=== PATIENT | female | born 1950 | race Caucasian/White ===

== ENCOUNTER 2016-08-26 21:57 | Emergency (ER) | payer MEDICARE, MEDICAID ==
[~2016-08-26] VITALS: Ht 160 cm; Wt 65.8 kg
[2016-08-26 22:15] VITALS: BP 151/81
[2016-08-27] MEDS ORDERED: traMADol HCL 50 MG TAB PO ONE (00:15)
== END 2016-08-27 00:26 | disposition home or self-care (01) ==
LOC: ER 22:05
DX: S20.212A Contusion of left front wall of thorax, initial encounter (principal); S60.212A Contusion of left wrist, initial encounter; Y09 Assault by unspecified means; Y93.89 Activity, other specified; Y99.8 Other external cause status; Y92.89 Other specified places as the place of occurrence of the external cause
CPT/HCPCS: 29125; 71101; 73100

== ENCOUNTER 2016-11-03 12:58 | Emergency (ER) | payer OTHER, MEDICAID ==
[~2016-11-03] VITALS: Ht 165.1 cm; Wt 72.6 kg
[2016-11-03 13:37] LABS: Basophils # (auto) 0 uL; Basophils % (auto) 0.5 % (0.0-2.0); Eosinophils # (auto) 0.1 uL; Eosinophils % (auto) 1.4 % (0.0-7.0); Hematocrit 35.8 % (36.0-46.0); Hemoglobin 11.7 g/dL (12.2-16.2); Lymphocytes % (auto) 25.3 % (10.0-50.0); Mean Corpuscular Hemoglobin 28.6 pg (28.0-32.0); Mean Corpuscular Hgb Conc. 32.7 g/dL (32.0-36.0); Mean Corpuscular Volume 87.5 fL (80.0-100.0); Mean Platelet Volume 9.1 fL (7.4-10.4); Monocytes # (auto) 0.3 uL; Monocytes % (auto) 7.4 % (0.0-12.0); Neutrophils # (auto) 2.6 uL; Neutrophils % (auto) 65.4 % (37.0-80.0); Platelet Count (auto) 133 10^3/uL (140-450); Red Cell Distribution Width 14.5 % (11.6-16.0)
[2016-11-03 13:59] LABS: Albumin 3.5 g/dL (3.4-5.0); Alkaline Phosphatase 66 U/L (45-117); Anion Gap 8 (5-15); Aspartate Aminotransferase 16 U/L (15-37); BUN/Creatinine Ratio 13.3; Bilirubin, Total 0.4 mg/dL (0.2-1.0); Blood Urea Nitrogen 12 mg/dL (7-18); Calcium 8.5 mg/dL (8.5-10.1); Carbon Dioxide 25 mmol/L (21-32); Chloride 106 mmol/L (98-107); GFR African American 81 mL/min; GFR Non-African American 67 mL/min; Glucose 92 mg/dL (74-106); Magnesium 2.3 mg/dL (1.6-2.6); Potassium 4.2 mmol/L (3.5-5.1); Sodium 139 mmol/L (136-145); Total Protein 6.9 g/dL (6.4-8.2)
[2016-11-03 15:05] LABS: Urine RBC None Seen /hpf (0 - 4)
[2016-11-03] MEDS ORDERED: ONDANSETRON HCL 4 MG/2 ML VIAL IV ONE (15:15)
[2016-11-03] MEDS ORDERED: MORPHINE SULFATE 4 MG/ML SYRG IV ONE (15:15)
[2016-11-03 15:30] LABS: Urine Bilirubin Negative (Negative); Urine Blood Negative /uL (Negative); Urine Color Colorless (Yellow); Urine Glucose Normal (Normal); Urine Ketone Negative (Negative); Urine Nitrite Negative (Negative); Urine Squamous Epithelial Cell FEW /hpf (<5); Urine Urobilinogen Normal (Negative); Urine pH 6.5 (5.0-8.0)
[2016-11-03 16:26] VITALS: BP 112/54
== END 2016-11-03 17:36 | disposition home or self-care (01) ==
LOC: EDUNIT# 12:58 → EDBD 12:58 → ER 13:01
DX: R07.89 Other chest pain (principal); K21.9 Gastro-esophageal reflux disease without esophagitis; E07.9 Disorder of thyroid, unspecified; I10 Essential (primary) hypertension; M41.9 Scoliosis, unspecified; G89.4 Chronic pain syndrome
CPT/HCPCS: 36415; 71020; 80053; 81001; 83690; 83735; 84484; 85025; 93005; 94761; 96374; 96375; 99285; J2270; J2405

== ENCOUNTER 2020-03-04 15:20 | Inpatient (IN) | payer OTHER, MEDICAID ==
[~2020-03-04] VITALS: Ht 157.5 cm; Wt 56.4 kg
[~2020-03-04 15:20] MED LIST: ALBUAER3 IN; ASPI81CH43; ATOR20TA50 PO; BACL20TA PO; BENA40TA7 PO; DIPH2.5T73 PO; HYDR-2551 PO; HYDR-4072 PO; LEV50T PO; LORA-622 PO; MECL1TAB42 PO; MELO1TAB73 PO; METO10TA3 PO; METO25TA93 PO; OMEP20TA85 PO; PREG50CA PO; PROC10TA2 PO; QUET50TA PO; ROPI3TAB4 PO; TEMA15CA91 PO
[2020-03-04] MEDS ORDERED: ASPirin 81 mg TAB PO ONE (16:00)
[2020-03-04] MEDS ORDERED: NITROGLYCERIN 0.4 MG SL TAB SL ONE (16:00)
[2020-03-04 17:58] LABS: Basophils # (auto) 0 10 ^3/uL (0-0.2); Basophils % (auto) 0.4 % (0.0-2.0); Eosinophils # (auto) 0.1 10 ^3/uL (0-0.8); Eosinophils % (auto) 1.3 % (0.0-7.0); Hematocrit 36.1 % (36.0-46.0); Hemoglobin 11.7 g/dL (12.2-16.2); Lymphocytes % (auto) 17.4 % (10.0-50.0); Mean Corpuscular Hemoglobin 30.9 pg (28.0-32.0); Mean Corpuscular Hgb Conc. 32.4 g/dL (32.0-36.0); Mean Corpuscular Volume 95.2 fL (80.0-100.0); Monocytes # (auto) 0.3 10 ^3/uL (0-1.3); Monocytes % (auto) 5.9 % (0.0-12.0); Neutrophils # (auto) 4.2 10 ^3/uL (1.6-8.6); Platelet Count (auto) 177 10^3/uL (140-450); Red Blood Cells 3.79 10^6/uL (4.0-5.20); White Blood Cell 5.6 10^3/uL (4.4-10.8)
[2020-03-04 18:13] LABS: INR 1.03 (0.9-1.15); Partial Thromboplastin Time 26.8 sec (23.0-31.2)
[2020-03-04 18:16] LABS: Alanine Aminotransferase 9 U/L (13-56); Albumin 3.6 g/dL (3.4-5.0); Anion Gap 7 (5-15); Aspartate Aminotransferase 9 U/L (15-37); BUN/Creatinine Ratio 9.6; Blood Urea Nitrogen 9 mg/dL (7-18); Carbon Dioxide 21 mmol/L (21-32); Chloride 110 mmol/L (98-107); GFR African American 76 mL/min; GFR Non-African American 63 mL/min; Glucose 76 mg/dL (74-106); Potassium 4.2 mmol/L (3.5-5.1); Sodium 138 mmol/L (136-145)
[2020-03-04 18:19] LABS: Calcium 8.6 mg/dL (8.5-10.1)
[2020-03-04 18:21] LABS: Alkaline Phosphatase 61 U/L (45-117); Bilirubin, Total 0.5 mg/dL (0.2-1.0)
[2020-03-04] MEDS ORDERED: MORPHINE SULFATE 4 MG/ML SYR/VIAL IV ONE (18:45)
[2020-03-04] MEDS ORDERED: ONDANSETRON HCL 4 MG/2 ML VIAL IV ONE (18:45)
[2020-03-04] MEDS ORDERED: ACETAMINOPHEN 500 MG TAB PO PRN (19:00)
[2020-03-04] MEDS ORDERED: NITROGLYCERIN 0.4 MG SL TAB SL PRN (19:00)
[2020-03-04] MEDS ORDERED: MORPHINE SULF INJ 2 MG/ML SYRINGE 1ML IV PRN (19:15)
[2020-03-04] MEDS ORDERED: TEMAZEPAM 15 MG CAP PO PRN (19:15)
[2020-03-04] MEDS ORDERED: LACTULOSE 20Gm/30ML SOLN PO PRN (19:15)
[2020-03-04] MEDS ORDERED: ONDANSETRON HCL 4 MG/2 ML VIAL IV PRN (19:15)
[2020-03-04] MEDS ORDERED: SODIUM CHLORIDE 0.9% 1,000 ML IV ONE (21:45)
[2020-03-04] MEDS: ROPINIROLE HYDROCHLORIDE 3 MG PO SCH (22:00)
[2020-03-04] MEDS ORDERED: ALBUTEROL SULF HFA 90MCG INH 200DOSE IN SCH (22:00)
[2020-03-04] MEDS: ATORVASTATIN 20 MG TAB PO SCH (22:06)
[2020-03-04] MEDS: QUEtiapine FUMARATE 25 MG TAB PO SCH (22:07)
[2020-03-04] MEDS: PREGABALIN 25 MG CAP PO SCH (22:07)
[2020-03-05] MEDS ORDERED: SODIUM CHLORIDE 0.9% 1,000 ML IV ONE (01:00)
[2020-03-05] MEDS: NOREPINEPHRINE 8 MG/250ML KIT 250 ML IV SCH (01:16)
[2020-03-05] MEDS: ROPINIROLE HYDROCHLORIDE 3 MG PO SCH ×3 (06:00→21:10)
[2020-03-05] MEDS: LEVOTHYROXINE SODIUM 50 MCG TAB PO SCH (07:08)
[2020-03-05] MEDS ORDERED: CHOLECALCIFEROL (VITD3) 2,000 UNIT CAP PO SCH (10:00)
[2020-03-05] MEDS ORDERED: ENOXAPARIN SOD 40 MG/0.4 ML SYRINGE SC SCH ×2 (10:00)
[2020-03-05] MEDS ORDERED: ASCORBIC ACID 1,000 MG TAB PO SCH (10:00)
[2020-03-05] MEDS ORDERED: METOPROLOL SUCCINATE XL 50 MG TAB PO SCH (10:00)
[2020-03-05] MEDS: ZINC SULFATE 220mg CAP or TAB PO SCH (10:40)
[2020-03-05] MEDS: ASPirin 81 mg TAB PO SCH (10:40)
[2020-03-05] MEDS: PANTOPRAZOLE 40 MG TAB PO SCH (10:40)
[2020-03-05] MEDS ORDERED: AZITHROMYCIN 250 MG TAB PO ONE (15:15)
[2020-03-05] MEDS ORDERED: cefTRIAXone 1GM/50ML D5W 50 ML IV ONE (15:15)
[2020-03-05] MEDS: traMADol HCL 50 MG TAB PO PRN (16:26)
[2020-03-05 19:45] VITALS: BP 114/45
[2020-03-05] MEDS: ATORVASTATIN 20 MG TAB PO SCH (21:12)
[2020-03-05] MEDS: PREGABALIN 25 MG CAP PO SCH (21:12)
[2020-03-05] MEDS: QUEtiapine FUMARATE 25 MG TAB PO SCH (21:12)
[2020-03-05 22:00] VITALS: BP 105/59
[2020-03-05] MEDS ORDERED: ACET-1156 PO (22:47)
[2020-03-05] MEDS ORDERED: ISOS30TA4 PO (22:48)
[2020-03-05] MEDS ORDERED: CARV3.1240 PO (22:48)
[2020-03-05 23:27] LABS: Anion Gap 5 (5-15); BUN/Creatinine Ratio 10.4; Blood Urea Nitrogen 10 mg/dL (7-18); Calcium 8.4 mg/dL (8.5-10.1); Carbon Dioxide 22 mmol/L (21-32); Chloride 109 mmol/L (98-107); GFR African American 74 mL/min; GFR Non-African American 61 mL/min; Glucose 84 mg/dL (74-106); Potassium 4.6 mmol/L (3.5-5.1); Sodium 136 mmol/L (136-145)
[2020-03-06] MEDS: NOREPINEPHRINE 8 MG/250ML KIT 250 ML IV SCH (00:43)
[2020-03-06 05:00] VITALS: BP 16/50
[2020-03-06] MEDS: ROPINIROLE HYDROCHLORIDE 3 MG PO SCH ×3 (06:00→21:01)
[2020-03-06] MEDS: LEVOTHYROXINE SODIUM 50 MCG TAB PO SCH (06:31)
[2020-03-06 06:42] LABS: Basophils # (auto) 0 10 ^3/uL (0-0.2); Basophils % (auto) 0.2 % (0.0-2.0); Eosinophils # (auto) 0.1 10 ^3/uL (0-0.8); Eosinophils % (auto) 1.9 % (0.0-7.0); Hemoglobin 11.5 g/dL (12.2-16.2); Lymphocytes # (auto) 1.2 10 ^3/uL (0.4-5.4); Lymphocytes % (auto) 28.9 % (10.0-50.0); Mean Corpuscular Hemoglobin 31.5 pg (28.0-32.0); Mean Corpuscular Hgb Conc. 32.9 g/dL (32.0-36.0); Mean Corpuscular Volume 95.8 fL (80.0-100.0); Monocytes # (auto) 0.3 10 ^3/uL (0-1.3); Monocytes % (auto) 7.8 % (0.0-12.0); Neutrophils # (auto) 2.6 10 ^3/uL (1.6-8.6); Neutrophils % (auto) 61.2 % (37.0-80.0); Platelet Count (auto) 144 10^3/uL (140-450); Red Blood Cells 3.66 10^6/uL (4.0-5.20); Red Cell Distribution Width 13.8 % (11.8-14.3); White Blood Cell 4.3 10^3/uL (4.4-10.8)
[2020-03-06 06:55] LABS: Albumin 3.4 g/dL (3.4-5.0); Calcium 8.3 mg/dL (8.5-10.1); Potassium 4.2 mmol/L (3.5-5.1)
[2020-03-06 06:59] LABS: BUN/Creatinine Ratio 14.8; Bilirubin, Total 0.4 mg/dL (0.2-1.0); Total Protein 6.6 g/dL (6.4-8.2)
[2020-03-06 08:00] VITALS: BP 138/78
[2020-03-06] MEDS: cefTRIAXone 1GM/50ML D5W 50 ML IV SCH (08:56)
[2020-03-06 09:00] VITALS: BP 112/58
[2020-03-06] MEDS ORDERED: RIVAROXABAN 20 MG TAB PO SCH ×2 (10:00→18:00)
[2020-03-06] MEDS: ASPirin 81 mg TAB PO SCH (10:17)
[2020-03-06] MEDS: PANTOPRAZOLE 40 MG TAB PO SCH (10:17)
[2020-03-06] MEDS: AZITHROMYCIN 250 MG TAB PO SCH (10:17)
[2020-03-06] MEDS: CHOLECALCIFEROL (VITD3) 1,000UNIT=25mCg TAB PO SCH (10:35)
[2020-03-06] MEDS: ZINC SULFATE 220mg CAP or TAB PO SCH (10:35)
[2020-03-06] MEDS: ASCORBIC ACID 500 MG TAB PO SCH (10:35)
[2020-03-06] MEDS: RIVAROXABAN 20 MG TAB PO SCH (11:10)
[2020-03-06 13:00] VITALS: BP 115/53
[2020-03-06] MEDS: MORPHINE SULF INJ 2 MG/ML SYRINGE 1ML IV PRN (14:58)
[2020-03-06] MEDS ORDERED: ONDANSETRON ODT 4 MG TAB PO PRN (15:45)
[2020-03-06] MEDS ORDERED: PANTOPRAZOLE 40 MG TAB PO ONE (16:00)
[2020-03-06 17:00] VITALS: BP 101/50
[2020-03-06] MEDS: SUCRALFATE 1 GM/10 ML ORAL SUSP PO SCH (18:14)
[2020-03-06] MEDS: HYDROcodone-ACET 10/325MG TAB PO PRN (20:00)
[2020-03-06] MEDS: PREGABALIN 25 MG CAP PO SCH (21:02)
[2020-03-06] MEDS: QUEtiapine FUMARATE 25 MG TAB PO SCH (21:02)
[2020-03-06] MEDS: ATORVASTATIN 20 MG TAB PO SCH (21:02)
[2020-03-06 22:46] VITALS: BP 114/62
[2020-03-07 05:00] VITALS: BP 94/69
[2020-03-07] MEDS: ROPINIROLE HYDROCHLORIDE 3 MG PO SCH ×3 (06:00→21:19)
[2020-03-07] MEDS: SUCRALFATE 1 GM/10 ML ORAL SUSP PO SCH ×2 (06:39→17:03)
[2020-03-07] MEDS: LEVOTHYROXINE SODIUM 50 MCG TAB PO SCH (06:40)
[2020-03-07] MEDS: CHOLECALCIFEROL (VITD3) 1,000UNIT=25mCg TAB PO SCH (07:30)
[2020-03-07] MEDS: ASCORBIC ACID 500 MG TAB PO SCH (07:30)
[2020-03-07 09:00] VITALS: BP 96/36
[2020-03-07] MEDS: cefTRIAXone 1GM/50ML D5W 50 ML IV SCH (09:05)
[2020-03-07] MEDS: ASPirin 81 mg TAB PO SCH (09:06)
[2020-03-07] MEDS: PANTOPRAZOLE 40 MG TAB PO SCH (09:06)
[2020-03-07] MEDS: AZITHROMYCIN 250 MG TAB PO SCH (09:06)
[2020-03-07] MEDS: RIVAROXABAN 20 MG TAB PO SCH (09:07)
[2020-03-07 13:00] VITALS: BP 105/42
[2020-03-07] MEDS: HYDROcodone-ACET 10/325MG TAB PO PRN (15:31)
[2020-03-07 17:00] VITALS: BP 118/42
[2020-03-07] MEDS: traMADol HCL 50 MG TAB PO PRN (18:51)
[2020-03-07] MEDS: MORPHINE SULF INJ 2 MG/ML SYRINGE 1ML IV PRN (20:23)
[2020-03-07] MEDS: QUEtiapine FUMARATE 25 MG TAB PO SCH (21:18)
[2020-03-07] MEDS: ATORVASTATIN 20 MG TAB PO SCH (21:19)
[2020-03-07] MEDS: PREGABALIN 25 MG CAP PO SCH (21:19)
[2020-03-07 22:00] VITALS: BP 105/69
[2020-03-08 05:00] VITALS: BP 118/64
[2020-03-08] MEDS: ROPINIROLE HYDROCHLORIDE 3 MG PO SCH ×3 (06:00→21:48)
[2020-03-08 06:07] LABS: Basophils # (auto) 0 10 ^3/uL (0-0.2); Basophils % (auto) 0.8 % (0.0-2.0); Eosinophils # (auto) 0.1 10 ^3/uL (0-0.8); Hematocrit 33.8 % (36.0-46.0); Hemoglobin 11.4 g/dL (12.2-16.2); Lymphocytes % (auto) 30.3 % (10.0-50.0); Mean Corpuscular Hemoglobin 31.9 pg (28.0-32.0); Mean Corpuscular Hgb Conc. 33.7 g/dL (32.0-36.0); Mean Corpuscular Volume 94.7 fL (80.0-100.0); Monocytes # (auto) 0.3 10 ^3/uL (0-1.3); Neutrophils # (auto) 1.9 10 ^3/uL (1.6-8.6); Neutrophils % (auto) 56.9 % (37.0-80.0); Nucleated Red Blood Cells % 0.1 %; Platelet Count (auto) 142 10^3/uL (140-450); Red Blood Cells 3.57 10^6/uL (4.0-5.20); Red Cell Distribution Width 13.7 % (11.8-14.3); White Blood Cell 3.4 10^3/uL (4.4-10.8)
[2020-03-08] MEDS: SUCRALFATE 1 GM/10 ML ORAL SUSP PO SCH ×2 (06:24→16:32)
[2020-03-08] MEDS: LEVOTHYROXINE SODIUM 50 MCG TAB PO SCH (06:24)
[2020-03-08 06:31] LABS: Calcium 8.5 mg/dL (8.5-10.1); Potassium 5.1 mmol/L (3.5-5.1)
[2020-03-08 09:00] VITALS: BP 110/59
[2020-03-08] MEDS: ASPirin 81 mg TAB PO SCH (09:53)
[2020-03-08] MEDS: RIVAROXABAN 20 MG TAB PO SCH (09:53)
[2020-03-08] MEDS: PANTOPRAZOLE 40 MG TAB PO SCH (09:53)
[2020-03-08] MEDS: cefTRIAXone 1GM/50ML D5W 50 ML IV SCH (09:54)
[2020-03-08] MEDS: AZITHROMYCIN 250 MG TAB PO SCH (09:54)
[2020-03-08] MEDS: HYDROcodone-ACET 10/325MG TAB PO PRN (12:55)
[2020-03-08 13:00] VITALS: BP 110/59
[2020-03-08 17:00] VITALS: BP 105/61
[2020-03-08 22:00] VITALS: BP 108/58
[2020-03-08] MEDS: PREGABALIN 25 MG CAP PO SCH (22:12)
[2020-03-08] MEDS: ATORVASTATIN 20 MG TAB PO SCH (22:12)
[2020-03-08] MEDS: QUEtiapine FUMARATE 25 MG TAB PO SCH (22:13)
[2020-03-09 05:25] VITALS: BP 115/54
[2020-03-09] MEDS: ROPINIROLE HYDROCHLORIDE 3 MG PO SCH ×3 (06:00→22:00)
[2020-03-09] MEDS: LEVOTHYROXINE SODIUM 50 MCG TAB PO SCH (06:36)
[2020-03-09] MEDS: SUCRALFATE 1 GM/10 ML ORAL SUSP PO SCH ×2 (06:36→16:38)
[2020-03-09] MEDS: cefTRIAXone 1GM/50ML D5W 50 ML IV SCH (08:44)
[2020-03-09] MEDS: HYDROcodone-ACET 10/325MG TAB PO PRN (08:45)
[2020-03-09] MEDS: PANTOPRAZOLE 40 MG TAB PO SCH (08:45)
[2020-03-09] MEDS: AZITHROMYCIN 250 MG TAB PO SCH (08:45)
[2020-03-09] MEDS: ASPirin 81 mg TAB PO SCH (08:48)
[2020-03-09] MEDS: RIVAROXABAN 20 MG TAB PO SCH (08:48)
[2020-03-09 09:00] VITALS: BP 109/65
[2020-03-09] MEDS: traMADol HCL 50 MG TAB PO PRN ×2 (10:49→21:21)
[2020-03-09 11:59] LABS: Basophils # (auto) 0 10 ^3/uL (0-0.2); Basophils % (auto) 0.7 % (0.0-2.0); Eosinophils # (auto) 0.1 10 ^3/uL (0-0.8); Eosinophils % (auto) 2.8 % (0.0-7.0); Hematocrit 34.1 % (36.0-46.0); Hemoglobin 11.4 g/dL (12.2-16.2); Lymphocytes # (auto) 0.6 10 ^3/uL (0.4-5.4); Lymphocytes % (auto) 15.9 % (10.0-50.0); Mean Corpuscular Hemoglobin 31.8 pg (28.0-32.0); Mean Corpuscular Hgb Conc. 33.4 g/dL (32.0-36.0); Mean Corpuscular Volume 95.1 fL (80.0-100.0); Monocytes # (auto) 0.4 10 ^3/uL (0-1.3); Monocytes % (auto) 9.8 % (0.0-12.0); Neutrophils # (auto) 2.6 10 ^3/uL (1.6-8.6); Neutrophils % (auto) 70.8 % (37.0-80.0); Nucleated Red Blood Cells % 0.1 %; Platelet Count (auto) 143 10^3/uL (140-450); Potassium 4.3 mmol/L (3.5-5.1); Red Blood Cells 3.58 10^6/uL (4.0-5.20); Red Cell Distribution Width 13.8 % (11.8-14.3); White Blood Cell 3.6 10^3/uL (4.4-10.8)
[2020-03-09 12:07] LABS: Calcium 8.7 mg/dL (8.5-10.1)
[2020-03-09 13:00] VITALS: BP 100/62
[2020-03-09 16:58] VITALS: BP 121/69
[2020-03-09 22:00] VITALS: BP 113/64
[2020-03-09] MEDS: QUEtiapine FUMARATE 25 MG TAB PO SCH (22:07)
[2020-03-09] MEDS: ATORVASTATIN 20 MG TAB PO SCH (22:07)
[2020-03-09] MEDS: PREGABALIN 25 MG CAP PO SCH (22:07)
[2020-03-10 05:00] VITALS: BP 104/50
[2020-03-10] MEDS: ROPINIROLE HYDROCHLORIDE 3 MG PO SCH ×3 (06:00→21:32)
[2020-03-10] MEDS: SUCRALFATE 1 GM/10 ML ORAL SUSP PO SCH ×2 (06:30→18:25)
[2020-03-10] MEDS: LEVOTHYROXINE SODIUM 50 MCG TAB PO SCH (06:30)
[2020-03-10 06:39] LABS: INR 0.97 (0.9-1.15); Partial Thromboplastin Time 27.3 sec (23.0-31.2)
[2020-03-10 08:00] VITALS: BP 107/58
[2020-03-10] MEDS: cefTRIAXone 1GM/50ML D5W 50 ML IV SCH (08:41)
[2020-03-10 09:00] VITALS: BP 108/58
[2020-03-10] MEDS: AZITHROMYCIN 250 MG TAB PO SCH (09:43)
[2020-03-10] MEDS: ASPirin 81 mg TAB PO SCH (09:43)
[2020-03-10] MEDS: PANTOPRAZOLE 40 MG TAB PO SCH (09:43)
[2020-03-10] MEDS: RIVAROXABAN 20 MG TAB PO SCH (09:43)
[2020-03-10 13:00] VITALS: BP 122/64
[2020-03-10] MEDS ORDERED: MIDAZOLAM HCL 1MG/1ML-2 ML VIAL IV ONE (13:15)
[2020-03-10 17:03] VITALS: BP 114/49
[2020-03-10] MEDS: QUEtiapine FUMARATE 25 MG TAB PO SCH (21:31)
[2020-03-10] MEDS: ATORVASTATIN 20 MG TAB PO SCH (21:31)
[2020-03-10] MEDS: PREGABALIN 25 MG CAP PO SCH (21:31)
[2020-03-10] MEDS: SODIUM CHLOR 0.9% PF (SALINE LOCK) 10ML VIAL/SYR IV SCH (21:32)
[2020-03-10 22:00] VITALS: BP 117/79
[2020-03-11 05:27] VITALS: BP 103/60
[2020-03-11] MEDS: ROPINIROLE HYDROCHLORIDE 3 MG PO SCH ×2 (06:00→14:00)
[2020-03-11] MEDS: LEVOTHYROXINE SODIUM 50 MCG TAB PO SCH (06:19)
[2020-03-11] MEDS: SUCRALFATE 1 GM/10 ML ORAL SUSP PO SCH (06:19)
[2020-03-11] MEDS: SODIUM CHLOR 0.9% PF (SALINE LOCK) 10ML VIAL/SYR IV SCH ×2 (06:19→14:00)
[2020-03-11 09:00] VITALS: BP 125/61
[2020-03-11] MEDS: ASPirin 81 mg TAB PO SCH (09:27)
[2020-03-11] MEDS: AZITHROMYCIN 250 MG TAB PO SCH (09:27)
[2020-03-11] MEDS: RIVAROXABAN 20 MG TAB PO SCH (09:28)
[2020-03-11] MEDS: PANTOPRAZOLE 40 MG TAB PO SCH (09:28)
[2020-03-11] MEDS: cefTRIAXone 1GM/50ML D5W 50 ML IV SCH (09:33)
[2020-03-11 11:10] VITALS: BP 106/55
[2020-03-11 13:00] VITALS: BP 123/76
== END 2020-03-11 14:54 | disposition home or self-care (01) | DRG 302 ==
LOC: EDBD 15:20 → ER 15:20 → EDUNIT# 15:20 → TELE 15:21 → TELE-EAST 23:26 → TELE 03-05 04:20 → TELE-WESTW 03-05 19:44
PROVIDERS: ADMIT Internal Medicine; ATTEND Internal Medicine Nephrology
DX: I51.3 Intracardiac thrombosis, not elsewhere classified (principal); J96.01 Acute respiratory failure with hypoxia; R57.9 Shock, unspecified; R07.89 Other chest pain; K21.9 Gastro-esophageal reflux disease without esophagitis; J02.9 Acute pharyngitis, unspecified; E03.9 Hypothyroidism, unspecified; G89.4 Chronic pain syndrome; I10 Essential (primary) hypertension; E66.9 Obesity, unspecified; G62.9 Polyneuropathy, unspecified; E78.5 Hyperlipidemia, unspecified; Z20.828 Contact with and (suspected) exposure to other viral communicable diseases; Z68.22 Body mass index [BMI] 22.0-22.9, adult; Z82.3 Family history of stroke; Z82.49 Family history of ischemic heart disease and other diseases of the circulatory system
CPT/HCPCS: 36415; 36600; 71045; 80048; 80053; 80061; 82728; 82805; 83605; 83735; 83880; 84439; 84443; 84484; 85025; 85379; 85610; 85652; 85730; 86141; 86850; 86900; 86901; 87040; 87426; 93005; 93306; 93312; 93971; 97163; 97530; 99152; G0378; J0696; J2250; J2405; Q0162

== ENCOUNTER 2020-04-19 12:52 | Inpatient (IN) | payer OTHER, MEDICAID ==
[~2020-04-19] VITALS: Ht 170.2 cm; Wt 66.9 kg
[~2020-04-19 12:52] MED LIST changes: +ACET-1156 PO; -ASPI81CH43; -BACL20TA PO; -BENA40TA7 PO; +CARV3.1240 PO; -DIPH2.5T73 PO; -HYDR-2551 PO; -HYDR-4072 PO; -LEV50T PO; -LORA-622 PO; -MECL1TAB42 PO; -MELO1TAB73 PO; -METO10TA3 PO; -METO25TA93 PO; -OMEP20TA85 PO; -PREG50CA PO; -PROC10TA2 PO; -QUET50TA PO; -ROPI3TAB4 PO; -TEMA15CA91 PO
[2020-04-19] MEDS ORDERED: SODIUM CHLORIDE 0.9% 1,000 ML IV ONE (13:15)
[2020-04-19] MEDS ORDERED: ACETAMINOPHEN 325 MG TAB PO ONE (13:45)
[2020-04-19 16:05] LABS: Basophils # (auto) 0 10 ^3/uL (0-0.2); Basophils % (auto) 0.3 % (0.0-2.0); Eosinophils # (auto) 0 10 ^3/uL (0-0.8); Eosinophils % (auto) 0.1 % (0.0-7.0); Hematocrit 35.4 % (36.0-46.0); Hemoglobin 11.8 g/dL (12.2-16.2); Lymphocytes # (auto) 0.3 10 ^3/uL (0.4-5.4); Mean Corpuscular Hgb Conc. 33.4 g/dL (32.0-36.0); Mean Corpuscular Volume 95.8 fL (80.0-100.0); Monocytes # (auto) 0.4 10 ^3/uL (0-1.3); Monocytes % (auto) 5.9 % (0.0-12.0); Neutrophils # (auto) 6.2 10 ^3/uL (1.6-8.6); Neutrophils % (auto) 88.7 % (37.0-80.0); Platelet Count (auto) 160 10^3/uL (140-450); Red Blood Cells 3.69 10^6/uL (4.0-5.20); Red Cell Distribution Width 13.6 % (11.8-14.3); White Blood Cell 6.9 10^3/uL (4.4-10.8)
[2020-04-19 16:18] LABS: Anion Gap 6 (5-15); Blood Urea Nitrogen 14 mg/dL (7-18); Calcium 8.3 mg/dL (8.5-10.1); Carbon Dioxide 20 mmol/L (21-32); Chloride 111 mmol/L (98-107); Glucose 82 mg/dL (74-106); Potassium 3.9 mmol/L (3.5-5.1); Sodium 137 mmol/L (136-145)
[2020-04-19 16:24] LABS: Alanine Aminotransferase 9 U/L (13-56); Alkaline Phosphatase 59 U/L (45-117); Aspartate Aminotransferase 9 U/L (15-37); BUN/Creatinine Ratio 17.1; Bilirubin, Total 0.6 mg/dL (0.2-1.0); GFR African American 89 mL/min; GFR Non-African American 73 mL/min; Total Protein 7.3 g/dL (6.4-8.2)
[2020-04-19 16:38] LABS: Urine Bacteria NONE SEEN /hpf (None Seen); Urine Blood TRACE /uL (Negative); Urine Hyaline Cast FEW /lpf (0 - 2); Urine Specific Gravity 1.018 (1.001-1.035); Urine WBC 6 /hpf (0 - 5)
[2020-04-19] MEDS ORDERED: cefTRIAXone 1GM/50ML D5W 50 ML IV ONE (18:15)
[2020-04-19] MEDS ORDERED: NITROGLYCERIN 0.4 MG SL TAB SL PRN (19:30)
[2020-04-19] MEDS ORDERED: MORPHINE SULF INJ 2 MG/ML SYRINGE 1ML IV PRN (19:30)
[2020-04-19] MEDS ORDERED: KETOROLAC TROMETH 30 MG/ML 1ML VIAL IV ONE (20:30)
[2020-04-19] MEDS ORDERED: ONDANSETRON HCL 4 MG/2 ML VIAL IV ONE (20:30)
[2020-04-19 22:50] LABS: CRP High Sensitivity 4.69 mg/dL (< 0.3)
[2020-04-19] MEDS: levoFLOXacin 500MG 100 ML IV SCH (22:50)
[2020-04-19] MEDS: ATORVASTATIN 20 MG TAB PO SCH (22:50)
[2020-04-19] MEDS: CARVEDILOL 3.125 MG TAB PO SCH (22:50)
[2020-04-19] MEDS: HYDROcodone-ACET 5/325MG TAB PO PRN (22:58)
[2020-04-19 23:01] VITALS: BP 110/40
--- NOTE | 2020-04-19 23:26 | NUR ---
TELE ADMIT Patient arrived to unit via wheelchair from ER. Patient is A&O X's 4 with no s/s of distress and reports a headache. Coplay medication was given to patient down in ER for this. Patient is on RA and saturation is 97%. No s/s of distress noted. Educated patient on POC and to use call light when in need of any assistance. Oriented patient to unit/call light/lights/ tv/bathroom/policies. Patient verbalized understanding. Provided patient with drinks and food. Bed is in lowest/locked position with side rails up X's 2 and call light is within reach of patient. Will continue care.
[2020-04-20 00:06] VITALS: BP 110/40
[2020-04-20] MEDS ORDERED: NITR0.4S29 SL (00:32)
[2020-04-20] MEDS ORDERED: ISOS30TA4 PO (00:32)
[2020-04-20] MEDS ORDERED: BENA40TA7 PO (00:32)
[2020-04-20] MEDS ORDERED: RIVA20TA PO (00:32)
[2020-04-20] MEDS: ACETAMINOPHEN 500 MG TAB PO PRN ×2 (04:56→18:56)
[2020-04-20 05:00] VITALS: BP 109/48
--- NOTE | 2020-04-20 05:05 | NUR ---
MRSA SWAB sent to lab via [employer] system
[2020-04-20] MEDS: ONDANSETRON HCL 4 MG/2 ML VIAL IV PRN (06:21)
--- NOTE | 2020-04-20 07:05 | NUR ---
Opening Shift Note Assumed care of patient, awake and alert. No S/S of distress/SOB or pain. Instructed on POC and to call for assist PRN, will continue to monitor for changes Q1hr and PRN.
[2020-04-20 07:20] LABS: Basophils # (auto) 0 10 ^3/uL (0-0.2); Basophils % (auto) 0.2 % (0.0-2.0); Eosinophils # (auto) 0 10 ^3/uL (0-0.8); Eosinophils % (auto) 0.7 % (0.0-7.0); Hematocrit 31.2 % (36.0-46.0); Hemoglobin 10.6 g/dL (12.2-16.2); Lymphocytes # (auto) 0.5 10 ^3/uL (0.4-5.4); Lymphocytes % (auto) 8.5 % (10.0-50.0); Mean Corpuscular Hemoglobin 32.1 pg (28.0-32.0); Mean Corpuscular Hgb Conc. 33.9 g/dL (32.0-36.0); Mean Corpuscular Volume 94.7 fL (80.0-100.0); Monocytes # (auto) 0.5 10 ^3/uL (0-1.3); Monocytes % (auto) 9.2 % (0.0-12.0); Neutrophils # (auto) 4.7 10 ^3/uL (1.6-8.6); Neutrophils % (auto) 81.4 % (37.0-80.0); Platelet Count (auto) 120 10^3/uL (140-450); Red Cell Distribution Width 13.6 % (11.8-14.3); White Blood Cell 5.8 10^3/uL (4.4-10.8)
[2020-04-20 07:27] LABS: Albumin 3.1 g/dL (3.4-5.0); Calcium 8.2 mg/dL (8.5-10.1); Potassium 4.1 mmol/L (3.5-5.1)
[2020-04-20 07:30] LABS: BUN/Creatinine Ratio 15.8; Bilirubin, Total 0.4 mg/dL (0.2-1.0); Total Protein 6.3 g/dL (6.4-8.2)
[2020-04-20 08:45] VITALS: BP 99/80
--- NOTE | 2020-04-20 09:56 | NUR ---
PATIENT TRANSFERRED FROM [facility] PATIENT TRANSFERRED FROM [facility] , IS REORIENTED TO WEST BED IS LOCKED AND IN LOWEST POSITION BED RAILS UP X2 CALL LIGHT IS WITHIN REACH. WILL CONTINUE TO MONITOR Q1H OR PRN.
--- NOTE | 2020-04-20 10:12 | NUR ---
PATIENT COMPLAINING OF CHEST PAIN DID EKG- INACTED CHEST PAIN PROTOCOL.
--- NOTE | 2020-04-20 10:23 | NUR ---
PATIENT CHEST PAIN IS DECREASING. VITALS STABLE BP 98/46 HR 74 OXYGEN 97: ON 2 L NC
[2020-04-20] MEDS: CARVEDILOL 3.125 MG TAB PO SCH ×2 (10:25→21:57)
[2020-04-20] MEDS: MORPHINE SULF INJ 2 MG/ML SYRINGE 1ML IV PRN ×2 (10:26→16:59)
[2020-04-20] MEDS: FAMOTIDINE 20 MG TAB PO SCH (10:26)
--- NOTE | 2020-04-20 10:27 | NUR ---
EKG READ BY DR LYNN AND SIGNED OFF.
[2020-04-20 13:00] VITALS: BP 103/56
--- NOTE | 2020-04-20 14:04 | NUR ---
PATIENTS OWN MEDS TAKEN DOWN TO PHARMACY.
[2020-04-20] MEDS ORDERED: IOHEXOL 350 MG/ML 100ML IJ ONE (15:34)
[2020-04-20] MEDS: levoFLOXacin 500MG 100 ML IV SCH (17:58)
[2020-04-20] MEDS: RIVAROXABAN 20 MG TAB PO SCH (17:58)
[2020-04-20 20:00] VITALS: BP 107/57
[2020-04-20] MEDS ORDERED: TEMAZEPAM 15 MG CAP PO ONE (21:15)
[2020-04-20 21:40] VITALS: BP 107/57
[2020-04-20] MEDS: ATORVASTATIN 20 MG TAB PO SCH (21:57)
[2020-04-21 04:57] VITALS: BP 102/68
[2020-04-21 09:00] VITALS: BP 91/48
[2020-04-21] MEDS: FAMOTIDINE 20 MG TAB PO SCH (10:07)
[2020-04-21] MEDS: HYDROcodone-ACET 5/325MG TAB PO PRN (10:07)
[2020-04-21] MEDS: CARVEDILOL 3.125 MG TAB PO SCH ×2 (10:08→21:52)
[2020-04-21 10:57] LABS: Basophils # (auto) 0 10 ^3/uL (0-0.2); Basophils % (auto) 0.2 % (0.0-2.0); Eosinophils # (auto) 0.1 10 ^3/uL (0-0.8); Eosinophils % (auto) 2.3 % (0.0-7.0); Lymphocytes # (auto) 0.6 10 ^3/uL (0.4-5.4); Lymphocytes % (auto) 10.4 % (10.0-50.0); Mean Corpuscular Hemoglobin 31.6 pg (28.0-32.0); Mean Corpuscular Hgb Conc. 33.4 g/dL (32.0-36.0); Mean Corpuscular Volume 94.6 fL (80.0-100.0); Monocytes # (auto) 0.5 10 ^3/uL (0-1.3); Monocytes % (auto) 8.8 % (0.0-12.0); Neutrophils # (auto) 4.2 10 ^3/uL (1.6-8.6); Neutrophils % (auto) 78.3 % (37.0-80.0); Nucleated Red Blood Cells % 0.1 %; Platelet Count (auto) 132 10^3/uL (140-450); Red Blood Cells 3.48 10^6/uL (4.0-5.20); Red Cell Distribution Width 13.4 % (11.8-14.3); White Blood Cell 5.4 10^3/uL (4.4-10.8)
[2020-04-21] MEDS ORDERED: OPTISON 3ml Vial for INJ IV ONE (11:08)
[2020-04-21 11:18] LABS: Calcium 8.7 mg/dL (8.5-10.1); Potassium 4.5 mmol/L (3.5-5.1)
[2020-04-21 11:24] LABS: BUN/Creatinine Ratio 12.7
[2020-04-21 11:31] LABS: INR 1.14 (0.9-1.15); Partial Thromboplastin Time 35.4 sec (23.0-31.2)
[2020-04-21 13:00] VITALS: BP 98/52
[2020-04-21 17:00] VITALS: BP 131/48
[2020-04-21] MEDS: RIVAROXABAN 20 MG TAB PO SCH (18:24)
[2020-04-21] MEDS: levoFLOXacin 500MG 100 ML IV SCH (18:24)
--- NOTE | 2020-04-21 19:47 | NUR ---
Opening Shift Note Assumed care of patient, awake and alert. No S/S of distress/SOB or pain. Instructed on POC and to call for assist PRN, will continue to monitor for changes Q1hr and PRN.bed in low position and call light within reach.
--- NOTE | 2020-04-21 20:11 | NUR ---
spoke with MD oliveira patient requesting stool softener. new orders received orders read back and verified by .
[2020-04-21] MEDS: ATORVASTATIN 20 MG TAB PO SCH (21:51)
[2020-04-21] MEDS: ACETAMINOPHEN 500 MG TAB PO PRN (21:51)
[2020-04-21] MEDS: DOCUSATE SOD 100 MG CAP PO ONE ×2 (22:01→22:04)
[2020-04-21] MEDS: methylPREDNISolone SOD SUCC 40 MG/ML VL IV SCH (22:01)
[2020-04-21 22:44] VITALS: BP 112/59
[2020-04-22 05:00] VITALS: BP 120/56
--- NOTE | 2020-04-22 07:19 | NUR ---
REPORT GIVEN TO DAYSHIFT RN PATIENT DENIES SOB DISTRESS OR PAIN. IV IS INTACT AND PATENT.
[2020-04-22 09:00] VITALS: BP 118/68
--- NOTE | 2020-04-22 09:00 | NUR ---
PT REPORTS THAT SHE IS WALKING FINE AND DOES NOT NEED P.T.
--- NOTE | 2020-04-22 09:30 | NUR ---
DR. WONG CALLED AND WILL DISCHARGE PATIENT TODAY. PATIENT MADE AWARE OF SAME. PATIENT VOICED CONCERN ABOUT INFECTION SHE HAS ACCORDING TO WHAT SHE HEARD BEFORE. DR. WNOG TALKED TO HER ABOUT HER LAB RESULTS AND OTHER TEST YESTERDAY BUT PATIENT DOES NOT REALLY REMEMBER. SHE WAS TOLD BY MD THAT HER LAB RESULT WERE NEGATIVE FOR INFECTION. PATIENT ANXIOUS ABOUT GOING HOME AND CONCERNED THAT SHE WILL HAVE THE SAME SYMPTOMS THAT SHE FELT BEFORE ADMISSION. SPENT SOME TIME LISTENING TO PATIENT CONCERN.
[2020-04-22] MEDS: CARVEDILOL 3.125 MG TAB PO SCH (10:12)
[2020-04-22] MEDS: methylPREDNISolone SOD SUCC 40 MG/ML VL IV SCH (10:13)
[2020-04-22] MEDS: FAMOTIDINE 20 MG TAB PO SCH (10:13)
[2020-04-22] MEDS ORDERED: LACTULOSE 20Gm/30ML SOLN PO ONE (11:45)
[2020-04-22] MEDS: HYDROcodone-ACET 5/325MG TAB PO PRN (12:39)
[2020-04-22 13:23] VITALS: BP 138/97
[2020-04-22] MEDS: ONDANSETRON HCL 4 MG/2 ML VIAL IV PRN (14:43)
[2020-04-22 14:49] VITALS: BP 138/72
--- NOTE | 2020-04-22 17:50 | NUR ---
PATIENT STATED THAT SHE WAS STARTING TO FEEL SOME DULL CHEST DISCOMFORT A ND THROAT AREA. PATIENT STATED THAT SHE HAD THIS BEFORE. BP- 124/76 HR 67 O2 SAT 97% ON 2L/NC O2. SHE STATED THAT IT COMES AND GOES AND SHE WAS CONCERNED ABOUT IT WHEN SHE GOES HOME. SHE SAID THAT IT WAS GETTING BETTER. REINFORCED TO PATIENT TO GO TO HER SCHEDULED APPOINTMENT WITH DR. SHIELDS AND HER PCP AND SHE STATED THAT SHE WILL.
[2020-04-22] MEDS: RIVAROXABAN 20 MG TAB PO SCH (17:59)
--- NOTE | 2020-04-22 18:50 | NUR ---
Discharge instructions given as ordered. Encourage to follow up with PMD as instructed. All questions and concerns addressed. Patient verbalized understanding. Medication reconciliation form completed and copy given to patient. Home medications held in Pharmacy returned to patient. IV removed with catheter intact, pressure dressing applied. Telemetry unit returned to ICU. Patient taken to vehicle via wheelchair with all personal belongings, accompanied by staff and family member. No distress noted at time of departure.
[2020-04-23] MEDS ORDERED: RIVA20TA PO (11:50)
== END 2020-04-22 18:50 | disposition home or self-care (01) | DRG 866 ==
LOC: EDBD 12:52 → ER 12:52 → TELE 12:53 → TELE-EAST 23:26 → TELE-WESTW 04-20 12:42
PROVIDERS: ADMIT Nurse Practitioner Acute Care; ATTEND Hospitalist
DX: T88.1XXA Other complications following immunization, not elsewhere classified, initial encounter (principal); I50.22 Chronic systolic (congestive) heart failure; R07.89 Other chest pain; R53.1 Weakness; Z20.828 Contact with and (suspected) exposure to other viral communicable diseases; I25.5 Ischemic cardiomyopathy; R50.9 Fever, unspecified; E86.0 Dehydration; J44.9 Chronic obstructive pulmonary disease, unspecified; E03.9 Hypothyroidism, unspecified; M41.9 Scoliosis, unspecified; D64.9 Anemia, unspecified; G89.29 Other chronic pain; I11.0 Hypertensive heart disease with heart failure; I51.3 Intracardiac thrombosis, not elsewhere classified; F41.9 Anxiety disorder, unspecified; K21.9 Gastro-esophageal reflux disease without esophagitis; M19.90 Unspecified osteoarthritis, unspecified site; Z79.899 Other long term (current) drug therapy; Z82.3 Family history of stroke; Z82.49 Family history of ischemic heart disease and other diseases of the circulatory system
CPT/HCPCS: 36415; 71045; 71275; 80048; 80053; 81001; 82728; 83615; 84443; 84484; 85025; 85610; 85730; 86141; 86710; 87040; 87081; 87086; 87426; 93005; 93306; 96361; 96365; 96367; 96375; G0378; J0696; J1885; J1956; J2405; Q9956

== ENCOUNTER 2020-05-13 21:26 | Inpatient (IN) | payer OTHER, MEDICAID ==
[~2020-05-13] VITALS: Ht 170.2 cm; Wt 69.3 kg
[~2020-05-13 21:26] MED LIST changes: +BENA40TA7 PO; +ISOS30TA4 PO; +NITR0.4S29 SL; +RIVA20TA PO
[2020-05-13 22:45] LABS: Basophils # (auto) 0 10 ^3/uL (0-0.2); Basophils % (auto) 0.5 % (0.0-2.0); Eosinophils # (auto) 0.1 10 ^3/uL (0-0.8); Eosinophils % (auto) 1.9 % (0.0-7.0); Hematocrit 34.5 % (36.0-46.0); Hemoglobin 11.5 g/dL (12.2-16.2); Lymphocytes # (auto) 1.3 10 ^3/uL (0.4-5.4); Lymphocytes % (auto) 36.2 % (10.0-50.0); Mean Corpuscular Hemoglobin 31.7 pg (28.0-32.0); Mean Corpuscular Hgb Conc. 33.4 g/dL (32.0-36.0); Mean Corpuscular Volume 94.9 fL (80.0-100.0); Monocytes # (auto) 0.3 10 ^3/uL (0-1.3); Monocytes % (auto) 9.1 % (0.0-12.0); Neutrophils # (auto) 1.9 10 ^3/uL (1.6-8.6); Neutrophils % (auto) 52.3 % (37.0-80.0); Platelet Count (auto) 156 10^3/uL (140-450); Red Blood Cells 3.64 10^6/uL (4.0-5.20); Red Cell Distribution Width 13.8 % (11.8-14.3); White Blood Cell 3.6 10^3/uL (4.4-10.8)
[2020-05-13] MEDS ORDERED: ONDANSETRON HCL 4 MG/2 ML VIAL IV ONE (22:45)
[2020-05-13] MEDS ORDERED: NITROGLYCERIN 0.4 MG SL TAB SL ONE (22:45)
[2020-05-13] MEDS ORDERED: MORPHINE SULFATE 4 MG/ML SYR/VIAL IV ONE (22:45)
[2020-05-13 22:59] LABS: Albumin 3.7 g/dL (3.4-5.0); Anion Gap 8 (5-15); Blood Urea Nitrogen 16 mg/dL (7-18); Calcium 8.8 mg/dL (8.5-10.1); Carbon Dioxide 21 mmol/L (21-32); Chloride 109 mmol/L (98-107); Glucose 79 mg/dL (74-106); Magnesium 2.1 mg/dL (1.6-2.6); Potassium 3.6 mmol/L (3.5-5.1); Sodium 138 mmol/L (136-145)
[2020-05-13] MEDS ORDERED: SODIUM CHLORIDE 0.9% 1,000 ML IV ONE (23:00)
[2020-05-13 23:05] LABS: Alanine Aminotransferase 11 U/L (13-56); Alkaline Phosphatase 54 U/L (45-117); Aspartate Aminotransferase 10 U/L (15-37); BUN/Creatinine Ratio 18.4; Bilirubin, Total 0.7 mg/dL (0.2-1.0); GFR African American 83 mL/min; GFR Non-African American 68 mL/min; Total Protein 6.8 g/dL (6.4-8.2)
[2020-05-13 23:06] LABS: INR 1.11 (0.9-1.15); Partial Thromboplastin Time 28.7 sec (23.0-31.2)
[2020-05-14] MEDS ORDERED: ACETAMINOPHEN 325 MG TAB PO ONE (02:45)
[2020-05-14] MEDS ORDERED: SODIUM CHLORIDE 0.9% 500 ML IV ONE ×2 (02:45→04:45)
[2020-05-14] MEDS ORDERED: MORPHINE SULFATE 4 MG/ML SYR/VIAL IV PRN (03:15)
[2020-05-14] MEDS ORDERED: DOCUSATE SOD 100 MG CAP PO PRN (03:15)
[2020-05-14] MEDS ORDERED: MORPHINE SULF INJ 2 MG/ML SYRINGE 1ML IV PRN (03:15)
[2020-05-14] MEDS ORDERED: NITROGLYCERIN 0.4 MG SL TAB SL PRN (03:15)
[2020-05-14] MEDS ORDERED: ALBUMIN 25% 100 ML IV ONE ×2 (04:32→04:45)
[2020-05-14 06:02] LABS: Albumin 3.4 g/dL (3.4-5.0); Calcium 7.6 mg/dL (8.5-10.1); Potassium 3.8 mmol/L (3.5-5.1)
[2020-05-14 06:06] LABS: BUN/Creatinine Ratio 19.7; Bilirubin, Total 0.4 mg/dL (0.2-1.0); Total Protein 5.6 g/dL (6.4-8.2)
[2020-05-14] MEDS: SODIUM CHLOR 0.9% PF (SALINE LOCK) 10ML VIAL/SYR IV SCH ×3 (06:08→21:36)
[2020-05-14 07:29] LABS: Basophils # (auto) 0 10 ^3/uL (0-0.2); Basophils % (auto) 0.5 % (0.0-2.0); Eosinophils # (auto) 0.1 10 ^3/uL (0-0.8); Hematocrit 28.3 % (36.0-46.0); Hemoglobin 9.4 g/dL (12.2-16.2); Lymphocytes # (auto) 0.9 10 ^3/uL (0.4-5.4); Lymphocytes % (auto) 42.3 % (10.0-50.0); Mean Corpuscular Hemoglobin 31.6 pg (28.0-32.0); Mean Corpuscular Hgb Conc. 33.1 g/dL (32.0-36.0); Mean Corpuscular Volume 95.4 fL (80.0-100.0); Monocytes # (auto) 0.2 10 ^3/uL (0-1.3); Monocytes % (auto) 11.6 % (0.0-12.0); Neutrophils # (auto) 0.9 10 ^3/uL (1.6-8.6); Neutrophils % (auto) 42.6 % (37.0-80.0); Nucleated Red Blood Cells % 0.2 %; Platelet Count (auto) 102 10^3/uL (140-450); Red Blood Cells 2.97 10^6/uL (4.0-5.20); Red Cell Distribution Width 13.7 % (11.8-14.3)
--- NOTE | 2020-05-14 08:26 | NUR ---
Pt Arrived on Unit Pt arrived on unit from ED. Pt is a/ox4 with no s/s of distress or SOB. Pt was able to ambulate to bed with no difficulty. Placed on 2L via NC. Safety measures initiated with call light within reach, bed in lowest position and side rails up. Will continue to monitor.
[2020-05-14 08:30] VITALS: BP 135/66
[2020-05-14] MEDS: MULTIPLE VITAMIN TAB PO SCH (09:16)
[2020-05-14] MEDS: ASPirin 81 mg TAB PO SCH (09:16)
[2020-05-14] MEDS: ASCORBIC ACID 500 MG TAB PO SCH ×2 (09:16→21:37)
[2020-05-14] MEDS: FAMOTIDINE 20 MG TAB PO SCH ×2 (09:17→21:37)
[2020-05-14] MEDS: ENOXAPARIN SOD 30 MG/0.3 ML SYRINGE SC SCH (09:17)
[2020-05-14] MEDS: ZINC SULFATE 220mg CAP or TAB PO SCH (09:17)
[2020-05-14 09:20] LABS: Cholesterol 127 mg/dL (< 200)
[2020-05-14] MEDS: ACETAMINOPHEN 325 MG TAB PO PRN (09:21)
[2020-05-14 09:23] LABS: HDL Cholesterol 32 mg/dL (40-59); LDL Cholesterol 74 mg/dL (< 100); Triglycerides 84 mg/dL (< 150)
[2020-05-14 09:27] VITALS: BP 130/66
--- NOTE | 2020-05-14 09:27 | NUR ---
Pt C/O Chest Discomfort Pt reports sudden discomfort to chest, pt states that it feels "pressure like" in nature. Pt is currently on 2L via NC, BP is 130/66 with a HR of 50. EKG performed, SR at 59bpm. Will notify upon rounding of EKG and pressure like symptoms. Will continue to monitor. Addendum: 05/14/20 at 1001 by KWABENA MURILLO RN RN Pt states that her discomfort has not changed, current rating of discomfort to be a 3/10. Will continue to monitor.
[2020-05-14] MEDS: ONDANSETRON HCL 4 MG/2 ML VIAL IV PRN ×2 (10:54→17:34)
[2020-05-14 12:02] VITALS: BP 125/56
[2020-05-14 12:23] LABS: Urine WBC None Seen /hpf (0 - 5)
[2020-05-14 12:27] LABS: Urine Bacteria FEW /hpf (None Seen); Urine Blood Negative /uL (Negative); Urine Specific Gravity 1.005 (1.001-1.035)
[2020-05-14] MEDS: HYDROcodone-ACET 5/325MG TAB PO PRN (14:38)
--- NOTE | 2020-05-14 16:35 | NUR ---
Dr Patel at Bedside MD to see pt. Pending cardiology recommendation. No new orders at this time. Will continue to monitor.
[2020-05-14 16:56] VITALS: BP 125/69
--- NOTE | 2020-05-14 19:10 | NUR ---
Opening Shift Note Assumed care of patient, awake and alert x4. Patient is resting in bed. Denies any needs. No S/S of distress/SOB or pain. Bed in low locked position, siderails up x2, call light within reach. Instructed on POC and to call for assist PRN, will continue to monitor for changes Q1hr and PRN.
[2020-05-14] MEDS: ATORVASTATIN 20 MG TAB PO SCH (21:37)
[2020-05-14 22:23] VITALS: BP 99/67
--- NOTE | 2020-05-15 00:21 | NUR ---
PATIENT ASLEEP, NO SOB AND ACUTE DISTRESS SEEN. WILL CONTINUE TO MONITOR.
[2020-05-15 05:20] VITALS: BP 123/70
[2020-05-15 06:35] LABS: Basophils # (auto) 0 10 ^3/uL (0-0.2); Basophils % (auto) 0.6 % (0.0-2.0); Eosinophils # (auto) 0.1 10 ^3/uL (0-0.8); Eosinophils % (auto) 2.9 % (0.0-7.0); Hematocrit 32.6 % (36.0-46.0); Hemoglobin 10.5 g/dL (12.2-16.2); Lymphocytes # (auto) 0.8 10 ^3/uL (0.4-5.4); Lymphocytes % (auto) 29.2 % (10.0-50.0); Mean Corpuscular Hemoglobin 31.1 pg (28.0-32.0); Mean Corpuscular Hgb Conc. 32.3 g/dL (32.0-36.0); Mean Corpuscular Volume 96.4 fL (80.0-100.0); Monocytes # (auto) 0.3 10 ^3/uL (0-1.3); Monocytes % (auto) 11.8 % (0.0-12.0); Neutrophils # (auto) 1.5 10 ^3/uL (1.6-8.6); Neutrophils % (auto) 55.5 % (37.0-80.0); Nucleated Red Blood Cells % 0.1 %; Platelet Count (auto) 118 10^3/uL (140-450); Red Blood Cells 3.38 10^6/uL (4.0-5.20); Red Cell Distribution Width 13.8 % (11.8-14.3); White Blood Cell 2.7 10^3/uL (4.4-10.8)
[2020-05-15 06:55] LABS: Albumin 3.4 g/dL (3.4-5.0); Calcium 8.4 mg/dL (8.5-10.1); Potassium 4.6 mmol/L (3.5-5.1)
[2020-05-15] MEDS: SODIUM CHLOR 0.9% PF (SALINE LOCK) 10ML VIAL/SYR IV SCH ×3 (06:56→22:22)
[2020-05-15 07:02] LABS: BUN/Creatinine Ratio 15.9; Bilirubin, Total 0.3 mg/dL (0.2-1.0); Total Protein 6.1 g/dL (6.4-8.2)
--- NOTE | 2020-05-15 07:16 | NUR ---
CLOSING SHIFT EVENT REPORT GIVEN TO AM NURSE. PATIENT NO SOB AND NO DISTRESS SEEN. BED IN LOW LOCKED POSITION, BED ALARM ON, SIDE RAILS UP X2, CALL LIGHT WITHIN REACH.
--- NOTE | 2020-05-15 07:40 | NUR ---
Opening Note Assumed pt care from NOC RN. Pt is a/ox4 with no s/s of distress or SOB. Pt is currently sitting upright in bed with no complaints at this time. Discussed POC with pt; pt verbalized understanding. Safety measures maintained with call light within reach, bed in lowest position and side rails up. Will continue to monitor for changes.
[2020-05-15] MEDS: ASPirin 81 mg TAB PO SCH (08:47)
[2020-05-15] MEDS: MULTIPLE VITAMIN TAB PO SCH (08:47)
[2020-05-15] MEDS: ENOXAPARIN SOD 30 MG/0.3 ML SYRINGE SC SCH (08:47)
[2020-05-15] MEDS: ZINC SULFATE 220mg CAP or TAB PO SCH (08:48)
[2020-05-15] MEDS: ASCORBIC ACID 500 MG TAB PO SCH ×2 (08:48→22:25)
[2020-05-15] MEDS: FAMOTIDINE 20 MG TAB PO SCH ×2 (08:48→22:25)
[2020-05-15 09:15] VITALS: BP 113/72
[2020-05-15 12:45] VITALS: BP 107/74
[2020-05-15] MEDS: ACETAMINOPHEN 325 MG TAB PO PRN (12:56)
[2020-05-15 16:12] VITALS: BP 110/73
--- NOTE | 2020-05-15 17:04 | NUR ---
DR Patel at Bedside MD to see pt. Plans to d/c home in the morning. New orders to start xarelto.
[2020-05-15] MEDS ORDERED: RIVAROXABAN 20 MG TAB PO SCH (18:00)
[2020-05-15 22:00] VITALS: BP 111/57
[2020-05-15] MEDS: CARVEDILOL 3.125 MG TAB PO SCH (22:00)
[2020-05-15] MEDS: ATORVASTATIN 20 MG TAB PO SCH (22:24)
--- NOTE | 2020-05-16 00:59 | NUR ---
PATIENT ASLEEP, DENIES ANY NEEDS.
[2020-05-16 05:00] VITALS: BP 129/44
[2020-05-16] MEDS: SODIUM CHLOR 0.9% PF (SALINE LOCK) 10ML VIAL/SYR IV SCH (05:46)
--- NOTE | 2020-05-16 05:52 | NUR ---
Patient denies any pain, no needs right now.
[2020-05-16 06:41] LABS: Chloride 111 mmol/L (98-107); Potassium 4.3 mmol/L (3.5-5.1); Sodium 141 mmol/L (136-145)
[2020-05-16] MEDS: ACETAMINOPHEN 325 MG TAB PO PRN (06:55)
[2020-05-16 06:59] LABS: Hematocrit 34.7 % (36.0-46.0); Hemoglobin 11.4 g/dL (12.2-16.2); Mean Corpuscular Hemoglobin 30.9 pg (28.0-32.0); Mean Corpuscular Hgb Conc. 32.9 g/dL (32.0-36.0); Platelet Count (auto) 127 10^3/uL (140-450); Red Blood Cells 3.69 10^6/uL (4.0-5.20); Red Cell Distribution Width 13.7 % (11.8-14.3)
[2020-05-16 07:03] LABS: Basophils % (manual) 0 (0.0-2.0); Blast Cells 0; Metamyelocytes % 0; Myelocytes % 0; Promyelocytes % 0; Reactive Lymphocytes 0
--- NOTE | 2020-05-16 07:20 | NUR ---
CLOSING SHIFT EVENT REPORT GIVEN TO AM NURSE. PATIENT NO SOB AND NO DISTRESS SEEN. BED IN LOW LOCKED POSITION, SIDE RAILS UP X2, CALL LIGHT WITHIN REACH.
[2020-05-16 07:21] LABS: Anion Gap 8 (5-15); BUN/Creatinine Ratio 19.2; Blood Urea Nitrogen 15 mg/dL (7-18); Calcium 8.8 mg/dL (8.5-10.1); Carbon Dioxide 22 mmol/L (21-32); GFR African American 94 mL/min; GFR Non-African American 78 mL/min; Glucose 87 mg/dL (74-106)
[2020-05-16 07:55] LABS: Band Neutrophils % (manual) 1; Eosinophils % (manual) 3 (0-7); Lymphocytes % (manual) 29 (10.0-50.0); Monocytes % (manual) 6 (0-12)
[2020-05-16 08:00] VITALS: BP 111/57
[2020-05-16 09:00] VITALS: BP 104/67
--- NOTE | 2020-05-16 09:15 | NUR ---
PHONE CALL FROM KELLI DEPUTY ASSESSOR FROM [facility] CALLED REGARDING DISCHARGE OF PATIENT PARRIS DEPUTY ASSESSOR NOTIFIED AND GIVEN INFORMATION, PHONE NUMBER [phone]
[2020-05-16] MEDS: ENOXAPARIN SOD 30 MG/0.3 ML SYRINGE SC SCH (09:25)
[2020-05-16] MEDS: ZINC SULFATE 220mg CAP or TAB PO SCH (09:25)
[2020-05-16] MEDS: ASPirin 81 mg TAB PO SCH (09:25)
[2020-05-16] MEDS: MULTIPLE VITAMIN TAB PO SCH (09:25)
[2020-05-16] MEDS: CARVEDILOL 3.125 MG TAB PO SCH (09:26)
[2020-05-16] MEDS: FAMOTIDINE 20 MG TAB PO SCH (09:27)
[2020-05-16] MEDS ORDERED: BENAZEPRIL HCL 10 MG TAB PO SCH (10:00)
[2020-05-16] MEDS ORDERED: ISOSORBIDE MONONITRATE ER 60 MG TAB PO SCH (10:00)
[2020-05-16 10:21] VITALS: BP 104/67
[2020-05-16] MEDS: HYDROcodone-ACET 5/325MG TAB PO PRN (11:15)
--- NOTE | 2020-05-16 11:15 | NUR ---
PAIN MANAGEMENT/EKG PATIENT STATING SHE HAS CHEST PAIN 10/10 EKG PERFORMED, MD SIGNED PRINTED STIP NORMAL SINUS RHYTHM, PLACED IN PATIENT CHART. [facility] GIVEN DUE TO DISCHARGE ORDER ALSO PATIENT STATING SHE WANTS [facility].
--- NOTE | 2020-05-16 13:09 | NUR ---
DISCHARGE NOTE PATIENT ALERT AND ORIENTED X4 ALL DISCHARGE INSTRUCTIONS GIVEN ALL QUESTIONS AND CONCERNS ADDRESSED AND ANSWERED PATIENT VERBALIZED UNDERSTANDING ALL DOCUMENTATIONS SENT TO [facility] VIA FAX. IV REMOVED CATHETER INTACT PRESSURE DRESSINGS APPLIED PATIENT TOLERATED WELL TELE BOX REMOVED CLEANED AND SENT TO ICU. PATIENT DENIES CP AT THIS TIME STATING "THE PAIN COMES AND GOES". PATIENT ALSO DENIES ALL SOB AND DISTRESS. PATIENT ASSISTED TO PERSONAL VEHICLE USING WHEELCHAIR.
== END 2020-05-16 13:12 | disposition home or self-care (01) | DRG 313 ==
LOC: EDBD 21:26 → ER 21:26 → TELE 21:27 → TELE-CENTR 05-14 08:34
PROVIDERS: ADMIT Nurse Practitioner Family; ATTEND Internal Medicine
DX: R07.89 Other chest pain (principal); I50.22 Chronic systolic (congestive) heart failure; N39.0 Urinary tract infection, site not specified; R51.9 Headache, unspecified; I95.9 Hypotension, unspecified; D72.819 Decreased white blood cell count, unspecified; K21.9 Gastro-esophageal reflux disease without esophagitis; D63.8 Anemia in other chronic diseases classified elsewhere; E03.9 Hypothyroidism, unspecified; F41.9 Anxiety disorder, unspecified; E78.5 Hyperlipidemia, unspecified; I11.0 Hypertensive heart disease with heart failure; I25.10 Atherosclerotic heart disease of native coronary artery without angina pectoris; Z82.49 Family history of ischemic heart disease and other diseases of the circulatory system; Z82.3 Family history of stroke
CPT/HCPCS: 36415; 71045; 80048; 80053; 80061; 81001; 83735; 83880; 84443; 84484; 85007; 85025; 85027; 85610; 85730; 87081; 87086; 93005; 96361; 96365; 96375; G0378; J2405; P9047

== ENCOUNTER 2020-05-19 01:42 | Inpatient (IN) | payer OTHER, MEDICAID ==
[~2020-05-19] VITALS: Ht 167.6 cm; Wt 64.0 kg
[2020-05-19] MEDS ORDERED: ACETAMINOPHEN 325 MG TAB PO ONE (02:45)
[2020-05-19 03:56] LABS: Basophils # (auto) 0 10 ^3/uL (0-0.2); Basophils % (auto) 0.1 % (0.0-2.0); Eosinophils # (auto) 0 10 ^3/uL (0-0.8); Eosinophils % (auto) 0.5 % (0.0-7.0); Hematocrit 39.4 % (36.0-46.0); Hemoglobin 13.1 g/dL (12.2-16.2); Lymphocytes # (auto) 0.3 10 ^3/uL (0.4-5.4); Lymphocytes % (auto) 11.4 % (10.0-50.0); Mean Corpuscular Hemoglobin 31.3 pg (28.0-32.0); Mean Corpuscular Hgb Conc. 33.2 g/dL (32.0-36.0); Mean Corpuscular Volume 94.5 fL (80.0-100.0); Monocytes # (auto) 0.3 10 ^3/uL (0-1.3); Monocytes % (auto) 11.2 % (0.0-12.0); Neutrophils # (auto) 1.8 10 ^3/uL (1.6-8.6); Neutrophils % (auto) 76.8 % (37.0-80.0); Nucleated Red Blood Cells % 0.1 %; Platelet Count (auto) 161 10^3/uL (140-450); Red Blood Cells 4.17 10^6/uL (4.0-5.20); Red Cell Distribution Width 13.6 % (11.8-14.3); White Blood Cell 2.4 10^3/uL (4.4-10.8)
[2020-05-19 04:15] LABS: Albumin 4.7 g/dL (3.4-5.0); BUN/Creatinine Ratio 9.8; Calcium 9.1 mg/dL (8.5-10.1); Magnesium 1.8 mg/dL (1.6-2.6); Potassium 3.9 mmol/L (3.5-5.1)
[2020-05-19 04:20] LABS: Bilirubin, Total 0.4 mg/dL (0.2-1.0); Total Protein 8.8 g/dL (6.4-8.2)
[2020-05-19 04:27] LABS: INR 1.4 (0.9-1.15); Partial Thromboplastin Time 31.9 sec (23.0-31.2)
[2020-05-19 05:21] LABS: Urine Bacteria FEW /hpf (None Seen); Urine Blood 2+ /uL (Negative); Urine Specific Gravity 1.016 (1.001-1.035); Urine WBC 1 /hpf (0 - 5)
[2020-05-19] MEDS ORDERED: DexAMETHasone SOD PHOS 10MG/1ML VIAL INJ IV ONE (05:45)
[2020-05-19] MEDS ORDERED: DOXYCYCLINE 100MG/250ML 250 ML IV ONE (05:45)
[2020-05-19] MEDS ORDERED: MORPHINE SULF INJ 2 MG/ML SYRINGE 1ML IV PRN (06:30)
[2020-05-19] MEDS ORDERED: NITROGLYCERIN 0.4 MG SL TAB SL PRN (06:30)
[2020-05-19] MEDS ORDERED: ONDANSETRON HCL 4 MG/2 ML VIAL IV PRN (06:30)
[2020-05-19] MEDS ORDERED: TEMAZEPAM 15 MG CAP PO PRN (06:30)
[2020-05-19 08:14] LABS: CRP High Sensitivity 0.65 mg/dL (< 0.3)
[2020-05-19] MEDS ORDERED: DexAMETHasone SOD PHOS 10MG/1ML VIAL INJ IV SCH (10:00)
[2020-05-19] MEDS: ISOSORBIDE MONONITRATE ER 60 MG TAB PO SCH (10:00)
[2020-05-19] MEDS ORDERED: FUROSEMIDE 40 MG TAB PO SCH (10:00)
[2020-05-19] MEDS ORDERED: FUROSEMIDE 40 MG/4 ML VIAL IV ONE (11:00)
[2020-05-19 11:19] VITALS: BP 111/53
[2020-05-19] MEDS: DOXYCYCLINE 100MG/250ML 250 ML IV SCH ×2 (11:35→22:05)
[2020-05-19] MEDS: ZINC SULFATE 220mg CAP or TAB PO SCH (11:35)
[2020-05-19] MEDS: ASCORBIC ACID 1,000 MG TAB PO SCH (11:36)
[2020-05-19] MEDS: FAMOTIDINE 20 MG TAB PO SCH ×2 (11:36→22:06)
[2020-05-19] MEDS: BENAZEPRIL HCL 10 MG TAB PO SCH (11:36)
[2020-05-19] MEDS: CHOLECALCIFEROL (VITD3) 2,000 UNIT CAP PO SCH (11:36)
[2020-05-19] MEDS: CARVEDILOL 3.125 MG TAB PO SCH ×2 (11:38→22:00)
[2020-05-19 13:00] VITALS: BP 115/62
[2020-05-19] MEDS: ALBUTEROL SULF HFA 90MCG INH 200DOSE IN SCH ×2 (14:45→21:58)
[2020-05-19] MEDS: BUDESONIDE (INHALATION) 180 MCG IH IN SCH ×2 (14:46→21:58)
[2020-05-19 17:00] VITALS: BP 99/78
[2020-05-19] MEDS ORDERED: RIVAROXABAN 20 MG TAB PO SCH (18:00)
[2020-05-19] MEDS: FUROSEMIDE 40 MG/4 ML VIAL IV SCH (18:00)
[2020-05-19 22:00] VITALS: BP 101/68
[2020-05-19] MEDS: ATORVASTATIN 20 MG TAB PO SCH (22:05)
[2020-05-20] MEDS: ACETAMINOPHEN 325 MG TAB PO PRN ×2 (04:57→22:43)
[2020-05-20 05:00] VITALS: BP 100/58
[2020-05-20] MEDS: FUROSEMIDE 40 MG/4 ML VIAL IV SCH ×2 (05:42→18:00)
[2020-05-20] MEDS: ALBUTEROL SULF HFA 90MCG INH 200DOSE IN SCH ×3 (06:22→22:16)
[2020-05-20] MEDS: BUDESONIDE (INHALATION) 180 MCG IH IN SCH ×2 (06:22→22:16)
[2020-05-20 07:24] LABS: Basophils # (auto) 0 10 ^3/uL (0-0.2); Basophils % (auto) 0.4 % (0.0-2.0); Eosinophils # (auto) 0 10 ^3/uL (0-0.8); Hematocrit 38.5 % (36.0-46.0); Hemoglobin 12.6 g/dL (12.2-16.2); Lymphocytes # (auto) 0.4 10 ^3/uL (0.4-5.4); Lymphocytes % (auto) 14.6 % (10.0-50.0); Mean Corpuscular Hemoglobin 31.2 pg (28.0-32.0); Mean Corpuscular Hgb Conc. 32.7 g/dL (32.0-36.0); Mean Corpuscular Volume 95.3 fL (80.0-100.0); Monocytes # (auto) 0.4 10 ^3/uL (0-1.3); Monocytes % (auto) 13.4 % (0.0-12.0); Neutrophils # (auto) 2.1 10 ^3/uL (1.6-8.6); Neutrophils % (auto) 71.6 % (37.0-80.0); Platelet Count (auto) 111 10^3/uL (140-450); Red Blood Cells 4.04 10^6/uL (4.0-5.20); Red Cell Distribution Width 13.8 % (11.8-14.3); White Blood Cell 2.9 10^3/uL (4.4-10.8)
[2020-05-20 07:46] LABS: Potassium 4.2 mmol/L (3.5-5.1)
[2020-05-20 07:52] LABS: Albumin 3.9 g/dL (3.4-5.0); BUN/Creatinine Ratio 17.3; Bilirubin, Total 0.3 mg/dL (0.2-1.0); Calcium 8.8 mg/dL (8.5-10.1); Total Protein 7.5 g/dL (6.4-8.2)
[2020-05-20 09:00] VITALS: BP 109/61
[2020-05-20] MEDS: CARVEDILOL 3.125 MG TAB PO SCH ×2 (10:00→22:49)
[2020-05-20] MEDS: BENAZEPRIL HCL 10 MG TAB PO SCH (10:00)
[2020-05-20] MEDS: ASCORBIC ACID 1,000 MG TAB PO SCH (10:42)
[2020-05-20] MEDS: CHOLECALCIFEROL (VITD3) 2,000 UNIT CAP PO SCH (10:42)
[2020-05-20] MEDS: FAMOTIDINE 20 MG TAB PO SCH ×2 (10:42→22:43)
[2020-05-20] MEDS: ISOSORBIDE MONONITRATE ER 60 MG TAB PO SCH (10:42)
[2020-05-20] MEDS: ZINC SULFATE 220mg CAP or TAB PO SCH (10:42)
[2020-05-20] MEDS: DOXYCYCLINE 100MG/250ML 250 ML IV SCH ×2 (10:42→22:43)
[2020-05-20 12:52] VITALS: BP 108/68
[2020-05-20] MEDS: ENOXAPARIN SOD 100 MG/1 ML SYRINGE SC SCH ×2 (14:10→22:44)
[2020-05-20 16:46] VITALS: BP 92/58
[2020-05-20 22:00] VITALS: BP 92/35
[2020-05-20] MEDS: ATORVASTATIN 20 MG TAB PO SCH (22:43)
[2020-05-20 23:00] VITALS: BP 103/68
[2020-05-21 05:00] VITALS: BP 98/55
[2020-05-21] MEDS: FUROSEMIDE 40 MG/4 ML VIAL IV SCH ×2 (05:24→18:00)
[2020-05-21] MEDS: ALBUTEROL SULF HFA 90MCG INH 200DOSE IN SCH ×4 (06:46→21:56)
[2020-05-21] MEDS: BUDESONIDE (INHALATION) 180 MCG IH IN SCH ×2 (06:46→21:31)
[2020-05-21 09:00] VITALS: BP 112/74
[2020-05-21] MEDS: ZINC SULFATE 220mg CAP or TAB PO SCH (10:39)
[2020-05-21] MEDS: DOXYCYCLINE 100MG/250ML 250 ML IV SCH ×2 (10:39→21:25)
[2020-05-21] MEDS: ISOSORBIDE MONONITRATE ER 60 MG TAB PO SCH (10:40)
[2020-05-21] MEDS: CARVEDILOL 3.125 MG TAB PO SCH ×2 (10:40→22:00)
[2020-05-21] MEDS: BENAZEPRIL HCL 10 MG TAB PO SCH (10:41)
[2020-05-21] MEDS: FAMOTIDINE 20 MG TAB PO SCH ×2 (10:41→21:24)
[2020-05-21] MEDS: CHOLECALCIFEROL (VITD3) 2,000 UNIT CAP PO SCH (10:42)
[2020-05-21] MEDS: ASCORBIC ACID 1,000 MG TAB PO SCH (10:42)
[2020-05-21] MEDS: ENOXAPARIN SOD 100 MG/1 ML SYRINGE SC SCH ×2 (10:42→21:25)
[2020-05-21 13:00] VITALS: BP 122/66
[2020-05-21] MEDS ORDERED: HYDROcodone-ACET 5/325MG TAB PO PRN (14:15)
[2020-05-21 17:00] VITALS: BP 121/67
[2020-05-21] MEDS: ATORVASTATIN 20 MG TAB PO SCH (21:24)
[2020-05-21 22:00] VITALS: BP 88/50
[2020-05-21 23:32] VITALS: BP 95/55
[2020-05-22] VITALS (9 sets, daily range): BP systolic 87–142; BP diastolic 51–78
[2020-05-22] MEDS: FUROSEMIDE 40 MG/4 ML VIAL IV SCH ×2 (06:00→18:46)
[2020-05-22] MEDS: ALBUTEROL SULF HFA 90MCG INH 200DOSE IN SCH ×3 (07:10→21:57)
[2020-05-22] MEDS: BUDESONIDE (INHALATION) 180 MCG IH IN SCH ×2 (07:10→21:57)
[2020-05-22] MEDS ORDERED: DOXYCYCLINE 100 MG TAB/CAP PO ONE (10:30)
[2020-05-22] MEDS: ZINC SULFATE 220mg CAP or TAB PO SCH (10:33)
[2020-05-22] MEDS: CARVEDILOL 3.125 MG TAB PO SCH ×2 (10:34→22:32)
[2020-05-22] MEDS: ISOSORBIDE MONONITRATE ER 60 MG TAB PO SCH (10:34)
[2020-05-22] MEDS: CHOLECALCIFEROL (VITD3) 2,000 UNIT CAP PO SCH (10:35)
[2020-05-22] MEDS: ASCORBIC ACID 1,000 MG TAB PO SCH (10:35)
[2020-05-22] MEDS: ENOXAPARIN SOD 100 MG/1 ML SYRINGE SC SCH ×2 (10:35→22:32)
[2020-05-22] MEDS: BENAZEPRIL HCL 10 MG TAB PO SCH (10:35)
[2020-05-22] MEDS: FAMOTIDINE 20 MG TAB PO SCH ×2 (10:35→22:32)
[2020-05-22] MEDS: ACETAMINOPHEN 325 MG TAB PO PRN (16:48)
[2020-05-22] MEDS: ATORVASTATIN 20 MG TAB PO SCH (22:32)
[2020-05-23 05:00] VITALS: BP 110/65
[2020-05-23] MEDS: FUROSEMIDE 40 MG/4 ML VIAL IV SCH ×2 (05:52→18:00)
[2020-05-23] MEDS: ALBUTEROL SULF HFA 90MCG INH 200DOSE IN SCH ×3 (07:03→21:24)
[2020-05-23] MEDS: BUDESONIDE (INHALATION) 180 MCG IH IN SCH ×2 (07:04→21:24)
[2020-05-23 07:27] LABS: Basophils # (auto) 0 10 ^3/uL (0-0.2); Basophils % (auto) 0.4 % (0.0-2.0); Eosinophils # (auto) 0 10 ^3/uL (0-0.8); Hemoglobin 12.2 g/dL (12.2-16.2); Monocytes # (auto) 0.2 10 ^3/uL (0-1.3); Neutrophils # (auto) 0.7 10 ^3/uL (1.6-8.6); Platelet Count (auto) 106 10^3/uL (140-450)
[2020-05-23 07:29] LABS: Eosinophils % (auto) 0.7 % (0.0-7.0); Hematocrit 36.2 % (36.0-46.0); Lymphocytes # (auto) 0.5 10 ^3/uL (0.4-5.4); Lymphocytes % (auto) 33.9 % (10.0-50.0); Mean Corpuscular Hemoglobin 31.5 pg (28.0-32.0); Mean Corpuscular Hgb Conc. 33.7 g/dL (32.0-36.0); Mean Corpuscular Volume 93.5 fL (80.0-100.0); Monocytes % (auto) 14.8 % (0.0-12.0); Neutrophils % (auto) 50.2 % (37.0-80.0); Red Blood Cells 3.87 10^6/uL (4.0-5.20); Red Cell Distribution Width 13.1 % (11.8-14.3)
[2020-05-23 07:47] LABS: Albumin 3.9 g/dL (3.4-5.0); Calcium 8.8 mg/dL (8.5-10.1); Potassium 3.9 mmol/L (3.5-5.1)
[2020-05-23 07:52] LABS: BUN/Creatinine Ratio 15.9; Bilirubin, Total 0.4 mg/dL (0.2-1.0); Total Protein 7.5 g/dL (6.4-8.2)
[2020-05-23 07:54] LABS: White Blood Cell 1.5 10^3/uL (4.4-10.8)
[2020-05-23 09:15] VITALS: BP 115/63
[2020-05-23] MEDS: ZINC SULFATE 220mg CAP or TAB PO SCH (09:24)
[2020-05-23] MEDS: CARVEDILOL 3.125 MG TAB PO SCH (09:25)
[2020-05-23] MEDS: ISOSORBIDE MONONITRATE ER 60 MG TAB PO SCH (09:25)
[2020-05-23] MEDS: ASCORBIC ACID 1,000 MG TAB PO SCH (09:25)
[2020-05-23] MEDS: BENAZEPRIL HCL 10 MG TAB PO SCH (09:25)
[2020-05-23] MEDS: FAMOTIDINE 20 MG TAB PO SCH (09:25)
[2020-05-23] MEDS: CHOLECALCIFEROL (VITD3) 2,000 UNIT CAP PO SCH (09:26)
[2020-05-23] MEDS: ENOXAPARIN SOD 100 MG/1 ML SYRINGE SC SCH (09:26)
[2020-05-23 13:00] VITALS: BP 84/53
[2020-05-23 14:21] LABS: Basophils # (auto) 0 10 ^3/uL (0-0.2); Basophils % (auto) 0.4 % (0.0-2.0); Eosinophils # (auto) 0 10 ^3/uL (0-0.8); Eosinophils % (auto) 0.6 % (0.0-7.0); Hematocrit 35.3 % (36.0-46.0); Hemoglobin 11.7 g/dL (12.2-16.2); Lymphocytes # (auto) 0.7 10 ^3/uL (0.4-5.4); Lymphocytes % (auto) 28.9 % (10.0-50.0); Mean Corpuscular Hemoglobin 31.4 pg (28.0-32.0); Mean Corpuscular Hgb Conc. 33.1 g/dL (32.0-36.0); Monocytes # (auto) 0.4 10 ^3/uL (0-1.3); Neutrophils # (auto) 1.4 10 ^3/uL (1.6-8.6); Neutrophils % (auto) 55.1 % (37.0-80.0); Nucleated Red Blood Cells % 0.1 %; Platelet Count (auto) 123 10^3/uL (140-450); Red Blood Cells 3.72 10^6/uL (4.0-5.20); Red Cell Distribution Width 13.4 % (11.8-14.3); White Blood Cell 2.6 10^3/uL (4.4-10.8)
[2020-05-23 17:15] VITALS: BP 97/58
== END 2020-05-23 22:25 | disposition home or self-care (01) | DRG 177 ==
LOC: EDBD 01:42 → ER 01:47 → TELE 01:48 → TELE-E-ADS 09:21
PROVIDERS: ADMIT Nurse Practitioner; ATTEND Internal Medicine
DX: U07.1 COVID-19 (principal); J12.89 Other viral pneumonia; I50.23 Acute on chronic systolic (congestive) heart failure; I21.4 Non-ST elevation (NSTEMI) myocardial infarction; D68.9 Coagulation defect, unspecified; D72.819 Decreased white blood cell count, unspecified; K21.9 Gastro-esophageal reflux disease without esophagitis; E03.9 Hypothyroidism, unspecified; F41.9 Anxiety disorder, unspecified; E78.5 Hyperlipidemia, unspecified; I11.0 Hypertensive heart disease with heart failure; I25.10 Atherosclerotic heart disease of native coronary artery without angina pectoris; J01.00 Acute maxillary sinusitis, unspecified; Z79.01 Long term (current) use of anticoagulants; Z82.3 Family history of stroke; Z82.49 Family history of ischemic heart disease and other diseases of the circulatory system
CPT/HCPCS: 36415; 71045; 80053; 81001; 82728; 83605; 83615; 83735; 83880; 84443; 84484; 85025; 85379; 85610; 85730; 86141; 87040; 87426; 93005; 94640; 96365; 96366; 96375; G0378; J1100; J2405; J3490

== ENCOUNTER 2020-09-30 09:01 | Inpatient (IN) | payer OTHER, MEDICAID ==
[~2020-09-30] VITALS: Ht 170.2 cm; Wt 73.1 kg
[~2020-09-30 09:01] MED LIST changes: -BENA40TA7 PO; +BENA40TA8 PO; +ISOS1TAB28 PO; -ISOS30TA4 PO
[2020-09-30 09:57] LABS: Basophils # (auto) 0 10 ^3/uL (0-0.2); Basophils % (auto) 0.7 % (0.0-2.0); Eosinophils # (auto) 0 10 ^3/uL (0-0.8); Hematocrit 36.6 % (36.0-46.0); Hemoglobin 12.5 g/dL (12.2-16.2); Lymphocytes # (auto) 0.6 10 ^3/uL (0.4-5.4); Lymphocytes % (auto) 17.3 % (10.0-50.0); Mean Corpuscular Hemoglobin 30.7 pg (28.0-32.0); Mean Corpuscular Hgb Conc. 34.1 g/dL (32.0-36.0); Monocytes # (auto) 0.3 10 ^3/uL (0-1.3); Monocytes % (auto) 7.7 % (0.0-12.0); Neutrophils # (auto) 2.5 10 ^3/uL (1.6-8.6); Neutrophils % (auto) 73.3 % (37.0-80.0); Nucleated Red Blood Cells % 0.2 %; Platelet Count (auto) 143 10^3/uL (140-450); Red Blood Cells 4.06 10^6/uL (4.0-5.20); Red Cell Distribution Width 13.8 % (11.8-14.3); White Blood Cell 3.4 10^3/uL (4.4-10.8)
[2020-09-30 09:58] LABS: Albumin 3.9 g/dL (3.4-5.0); Anion Gap 11 (5-15); Blood Urea Nitrogen 14 mg/dL (7-18); Carbon Dioxide 19 mmol/L (21-32); Chloride 106 mmol/L (98-107); Glucose 96 mg/dL (74-106); Sodium 136 mmol/L (136-145)
[2020-09-30 10:03] LABS: Alanine Aminotransferase 11 U/L (13-56); Alkaline Phosphatase 50 U/L (45-117); Aspartate Aminotransferase 11 U/L (15-37); BUN/Creatinine Ratio 15.1; Bilirubin, Total 0.4 mg/dL (0.2-1.0); GFR African American 77 mL/min; GFR Non-African American 63 mL/min; Total Protein 7.5 g/dL (6.4-8.2)
[2020-09-30 10:36] LABS: INR 0.98 (0.9-1.15); Partial Thromboplastin Time 27.6 sec (23.0-31.2)
[2020-09-30] MEDS ORDERED: LIDOCAINE VISCOUS 2% 15ML UD ONE (12:56)
[2020-09-30] MEDS ORDERED: DONNATAL 5ml ORAL Elix (BELLADONNA ALK-PHENOBARB) ONE (12:56)
[2020-09-30] MEDS ORDERED: ALUM & MAG HYDROX-SIMETH LIQ(MAALOX) 30 ML ONE (12:56)
[2020-09-30] MEDS ORDERED: ALUM & MAG HYDROX-SIMETH LIQ(MAALOX) 30 ML PO ONE (13:00)
[2020-09-30] MEDS ORDERED: NITROGLYCERIN 0.4 MG SL TAB SL PRN (13:00)
[2020-09-30] MEDS ORDERED: LORazepam 0.5 MG TAB PO PRN (13:00)
[2020-09-30] MEDS ORDERED: MORPHINE SULF INJ 2 MG/ML SYRINGE 1ML IV PRN ×2 (13:00)
[2020-09-30] MEDS ORDERED: ALBUTEROL SULF 2.5 MG/0.5ML(0.5%) NEB SOLN NEB PRN (13:00)
[2020-09-30] MEDS ORDERED: hydrALAZINE HCL 20 MG/ML VL IV PRN (13:00)
[2020-09-30] MEDS ORDERED: DOCUSATE CALCIUM 240 MG CAP PO PRN (13:00)
[2020-09-30 15:46] VITALS: BP 106/78
[2020-09-30 15:54] VITALS: BP 106/78
[2020-09-30 18:10] VITALS: BP 106/78
[2020-09-30] MEDS ORDERED: POLYETHYLENE GLYCOL 17 GM PWDR PO ONE (18:30)
[2020-09-30] MEDS ORDERED: RIV20T PO (18:51)
[2020-09-30] MEDS ORDERED: METH750T22 PO (18:51)
[2020-09-30] MEDS ORDERED: BUSP10TA90 PO (18:51)
[2020-09-30] MEDS ORDERED: [UNRECOGNIZED DRUG - CODE] EX (18:51)
[2020-09-30] MEDS ORDERED: ASPI-543 PO (18:51)
[2020-09-30 19:52] LABS: Urine Bacteria NONE SEEN /hpf (None Seen); Urine Blood TRACE /uL (Negative); Urine Hyaline Cast FEW /lpf (0 - 2); Urine Mucus FEW (None Seen); Urine Specific Gravity 1.015 (1.001-1.035); Urine WBC 1 /hpf (0 - 5)
[2020-09-30] MEDS: ONDANSETRON HCL 4 MG/2 ML VIAL IV PRN (21:05)
[2020-09-30 22:00] VITALS: BP 107/41
[2020-09-30] MEDS: CARVEDILOL 3.125 MG TAB PO SCH (23:12)
[2020-10-01 05:15] VITALS: BP 101/51
[2020-10-01 07:21] LABS: Basophils # (auto) 0 10 ^3/uL (0-0.2); Basophils % (auto) 0.7 % (0.0-2.0); Eosinophils # (auto) 0.1 10 ^3/uL (0-0.8); Eosinophils % (auto) 2.1 % (0.0-7.0); Hematocrit 34.4 % (36.0-46.0); Hemoglobin 11.8 g/dL (12.2-16.2); Lymphocytes % (auto) 36.9 % (10.0-50.0); Mean Corpuscular Hemoglobin 31.2 pg (28.0-32.0); Mean Corpuscular Hgb Conc. 34.4 g/dL (32.0-36.0); Mean Corpuscular Volume 90.7 fL (80.0-100.0); Monocytes # (auto) 0.3 10 ^3/uL (0-1.3); Monocytes % (auto) 11.6 % (0.0-12.0); Neutrophils # (auto) 1.4 10 ^3/uL (1.6-8.6); Neutrophils % (auto) 48.7 % (37.0-80.0); Nucleated Red Blood Cells % 0.1 %; Platelet Count (auto) 138 10^3/uL (140-450); Red Blood Cells 3.79 10^6/uL (4.0-5.20); Red Cell Distribution Width 13.9 % (11.8-14.3); White Blood Cell 2.8 10^3/uL (4.4-10.8)
[2020-10-01 07:38] LABS: Albumin 3.6 g/dL (3.4-5.0); Anion Gap 6 (5-15); Blood Urea Nitrogen 10 mg/dL (7-18); Calcium 8.4 mg/dL (8.5-10.1); Carbon Dioxide 23 mmol/L (21-32); Chloride 107 mmol/L (98-107); Glucose 81 mg/dL (74-106); Potassium 4.3 mmol/L (3.5-5.1); Sodium 136 mmol/L (136-145)
[2020-10-01 07:43] LABS: Alanine Aminotransferase 11 U/L (13-56); Alkaline Phosphatase 46 U/L (45-117); Aspartate Aminotransferase 14 U/L (15-37); BUN/Creatinine Ratio 11.2; Bilirubin, Total 0.3 mg/dL (0.2-1.0); GFR African American 81 mL/min; GFR Non-African American 67 mL/min; Total Protein 6.6 g/dL (6.4-8.2)
[2020-10-01 08:37] VITALS: BP 100/51
[2020-10-01] MEDS: BENAZEPRIL HCL 10 MG TAB PO SCH (10:00)
[2020-10-01] MEDS ORDERED: POLYETHYLENE GLYCOL 17 GM PWDR PO SCH (10:00)
[2020-10-01] MEDS: CARVEDILOL 3.125 MG TAB PO SCH ×2 (10:00→22:07)
[2020-10-01] MEDS: ENOXAPARIN SOD 40 MG/0.4 ML SYRINGE SC SCH (10:09)
[2020-10-01] MEDS: PANTOPRAZOLE 40 MG TAB PO SCH (10:09)
[2020-10-01] MEDS: ACETAMINOPHEN 500 MG TAB PO PRN (10:20)
[2020-10-01] MEDS ORDERED: cefTRIAXone 1GM/50ML D5W 50 ML IV ONE (10:45)
[2020-10-01 13:00] VITALS: BP 125/63
[2020-10-01] MEDS: METHOCARBAMOL 500 MG TAB PO SCH ×2 (14:00→22:07)
[2020-10-01] MEDS: busPIRone HCL 10 MG TAB PO SCH ×2 (15:44→22:07)
[2020-10-01 17:00] VITALS: BP 125/80
[2020-10-01 19:30] VITALS: BP 112/65
[2020-10-01 21:22] VITALS: BP 112/65
[2020-10-01] MEDS: ATORVASTATIN 20 MG TAB PO SCH (22:07)
[2020-10-02 04:57] VITALS: BP 99/67
[2020-10-02] MEDS: METHOCARBAMOL 500 MG TAB PO SCH ×3 (06:00→20:48)
[2020-10-02 06:12] LABS: Hemoglobin 12.1 g/dL (12.2-16.2)
[2020-10-02 06:30] LABS: Chloride 106 mmol/L (98-107); Potassium 4.5 mmol/L (3.5-5.1); Sodium 137 mmol/L (136-145)
[2020-10-02 06:34] LABS: Hematocrit 35.6 % (36.0-46.0); Mean Corpuscular Hgb Conc. 34.1 g/dL (32.0-36.0); Mean Corpuscular Volume 90.9 fL (80.0-100.0); Platelet Count (auto) 146 10^3/uL (140-450); Red Blood Cells 3.92 10^6/uL (4.0-5.20); White Blood Cell 2.8 10^3/uL (4.4-10.8)
[2020-10-02 06:37] LABS: Band Neutrophils % (manual) 0; Basophils % (manual) 0 (0.0-2.0); Blast Cells 0; Metamyelocytes % 0; Myelocytes % 0; Promyelocytes % 0; Reactive Lymphocytes 0
[2020-10-02 06:41] LABS: Alanine Aminotransferase 13 U/L (13-56); Albumin 3.6 g/dL (3.4-5.0); Alkaline Phosphatase 48 U/L (45-117); Anion Gap 7 (5-15); Aspartate Aminotransferase 12 U/L (15-37); BUN/Creatinine Ratio 8.4; Bilirubin, Total 0.4 mg/dL (0.2-1.0); Blood Urea Nitrogen 7 mg/dL (7-18); Calcium 8.9 mg/dL (8.5-10.1); Carbon Dioxide 24 mmol/L (21-32); GFR African American 87 mL/min; GFR Non-African American 72 mL/min; Glucose 89 mg/dL (74-106); Total Protein 6.9 g/dL (6.4-8.2)
[2020-10-02] MEDS: busPIRone HCL 10 MG TAB PO SCH ×3 (06:58→20:45)
[2020-10-02] MEDS: LEVOTHYROXINE SODIUM 50 MCG TAB PO SCH (06:58)
[2020-10-02 07:40] LABS: Eosinophils % (manual) 6 (0-7); Lymphocytes % (manual) 40 (10.0-50.0); Monocytes % (manual) 10 (0-12)
[2020-10-02 08:00] VITALS: BP 104/60
[2020-10-02] MEDS: cefTRIAXone 1GM/50ML D5W 50 ML IV SCH (08:41)
[2020-10-02] MEDS: BENAZEPRIL HCL 10 MG TAB PO SCH (08:43)
[2020-10-02] MEDS: CARVEDILOL 3.125 MG TAB PO SCH ×2 (08:43→20:46)
[2020-10-02] MEDS: ACETAMINOPHEN 500 MG TAB PO PRN (08:44)
[2020-10-02] MEDS: PANTOPRAZOLE 40 MG TAB PO SCH (08:44)
[2020-10-02] MEDS: ENOXAPARIN SOD 40 MG/0.4 ML SYRINGE SC SCH (08:45)
[2020-10-02] MEDS ORDERED: HYDROcodone-ACET 5/325MG TAB PO PRN (10:15)
[2020-10-02 12:00] VITALS: BP 109/67
[2020-10-02 16:00] VITALS: BP 109/54
[2020-10-02] MEDS: ONDANSETRON HCL 4 MG/2 ML VIAL IV PRN (19:38)
[2020-10-02] MEDS: ATORVASTATIN 20 MG TAB PO SCH (20:46)
[2020-10-02 22:00] VITALS: BP 103/54
[2020-10-03] VITALS (8 sets, daily range): BP systolic 102–132; BP diastolic 54–84
[2020-10-03] MEDS: ONDANSETRON HCL 4 MG/2 ML VIAL IV PRN (00:11)
[2020-10-03] MEDS: busPIRone HCL 10 MG TAB PO SCH ×3 (05:39→21:20)
[2020-10-03] MEDS: METHOCARBAMOL 500 MG TAB PO SCH ×3 (05:39→21:22)
[2020-10-03] MEDS: LEVOTHYROXINE SODIUM 50 MCG TAB PO SCH (05:40)
[2020-10-03 06:27] LABS: Basophils # (auto) 0 10 ^3/uL (0-0.2); Basophils % (auto) 0.6 % (0.0-2.0); Eosinophils # (auto) 0.1 10 ^3/uL (0-0.8); Eosinophils % (auto) 2.5 % (0.0-7.0); Hematocrit 31.9 % (36.0-46.0); Hemoglobin 11.1 g/dL (12.2-16.2); Lymphocytes # (auto) 1.1 10 ^3/uL (0.4-5.4); Lymphocytes % (auto) 34.5 % (10.0-50.0); Mean Corpuscular Hemoglobin 31.4 pg (28.0-32.0); Mean Corpuscular Hgb Conc. 34.9 g/dL (32.0-36.0); Monocytes # (auto) 0.3 10 ^3/uL (0-1.3); Monocytes % (auto) 10.3 % (0.0-12.0); Neutrophils # (auto) 1.6 10 ^3/uL (1.6-8.6); Neutrophils % (auto) 52.1 % (37.0-80.0); Nucleated Red Blood Cells % 0.2 %; Platelet Count (auto) 137 10^3/uL (140-450); Red Blood Cells 3.54 10^6/uL (4.0-5.20); Red Cell Distribution Width 13.8 % (11.8-14.3); White Blood Cell 3.2 10^3/uL (4.4-10.8)
[2020-10-03 06:48] LABS: Anion Gap 5 (5-15); Blood Urea Nitrogen 8 mg/dL (7-18); Calcium 8.1 mg/dL (8.5-10.1); Carbon Dioxide 26 mmol/L (21-32); Chloride 105 mmol/L (98-107); Glucose 87 mg/dL (74-106); Potassium 4.7 mmol/L (3.5-5.1); Sodium 136 mmol/L (136-145)
[2020-10-03 06:51] LABS: GFR African American 91 mL/min; GFR Non-African American 75 mL/min
[2020-10-03] MEDS ORDERED: ADENOSINE 60 MG in GIVE UN-DILUTED 0 ML IV STA (08:40)
[2020-10-03] MEDS: BENAZEPRIL HCL 10 MG TAB PO SCH (10:00)
[2020-10-03] MEDS: PANTOPRAZOLE 40 MG TAB PO SCH (10:00)
[2020-10-03] MEDS: CARVEDILOL 3.125 MG TAB PO SCH ×2 (10:00→21:21)
[2020-10-03] MEDS: cefTRIAXone 1GM/50ML D5W 50 ML IV SCH (11:57)
[2020-10-03] MEDS: ENOXAPARIN SOD 40 MG/0.4 ML SYRINGE SC SCH (11:58)
[2020-10-03] MEDS ORDERED: LIDOCAINE VISCOUS 2% 15ML UD PO ONE (12:15)
[2020-10-03] MEDS ORDERED: fentaNYL CITRATE 100 MCG/2 ML VL IV ONE (12:15)
[2020-10-03] MEDS ORDERED: MIDAZOLAM HCL 1MG/1ML-2 ML VIAL IV ONE (12:15)
[2020-10-03] MEDS: ATORVASTATIN 20 MG TAB PO SCH (21:21)
[2020-10-04 05:29] VITALS: BP 105/56
[2020-10-04] MEDS: busPIRone HCL 10 MG TAB PO SCH ×2 (05:34→14:00)
[2020-10-04] MEDS: LEVOTHYROXINE SODIUM 50 MCG TAB PO SCH (05:34)
[2020-10-04] MEDS: METHOCARBAMOL 500 MG TAB PO SCH ×2 (05:35→14:00)
[2020-10-04 07:34] LABS: Basophils # (auto) 0 10 ^3/uL (0-0.2); Basophils % (auto) 0.5 % (0.0-2.0); Eosinophils # (auto) 0.1 10 ^3/uL (0-0.8); Eosinophils % (auto) 2.5 % (0.0-7.0); Hematocrit 33.7 % (36.0-46.0); Hemoglobin 11.5 g/dL (12.2-16.2); Lymphocytes # (auto) 0.9 10 ^3/uL (0.4-5.4); Lymphocytes % (auto) 27.9 % (10.0-50.0); Mean Corpuscular Hemoglobin 30.6 pg (28.0-32.0); Mean Corpuscular Volume 89.9 fL (80.0-100.0); Monocytes # (auto) 0.3 10 ^3/uL (0-1.3); Monocytes % (auto) 9.9 % (0.0-12.0); Neutrophils # (auto) 1.9 10 ^3/uL (1.6-8.6); Neutrophils % (auto) 59.2 % (37.0-80.0); Nucleated Red Blood Cells % 0.2 %; Platelet Count (auto) 149 10^3/uL (140-450); Red Blood Cells 3.75 10^6/uL (4.0-5.20); Red Cell Distribution Width 13.9 % (11.8-14.3); White Blood Cell 3.2 10^3/uL (4.4-10.8)
[2020-10-04 08:08] LABS: Potassium 4.6 mmol/L (3.5-5.1)
[2020-10-04 08:14] LABS: Albumin 3.3 g/dL (3.4-5.0); BUN/Creatinine Ratio 13.8; Bilirubin, Total 0.4 mg/dL (0.2-1.0); Calcium 8.7 mg/dL (8.5-10.1); Total Protein 6.4 g/dL (6.4-8.2)
[2020-10-04 09:03] VITALS: BP 115/61
[2020-10-04] MEDS: cefTRIAXone 1GM/50ML D5W 50 ML IV SCH (09:42)
[2020-10-04] MEDS: CARVEDILOL 3.125 MG TAB PO SCH (09:43)
[2020-10-04] MEDS: PANTOPRAZOLE 40 MG TAB PO SCH (09:43)
[2020-10-04] MEDS ORDERED: MAGNESIUM OXIDE 400 MG TAB PO SCH (10:00)
[2020-10-04] MEDS ORDERED: BENAZEPRIL HCL 10 MG TAB PO SCH (10:00)
[2020-10-04 12:03] VITALS: BP 103/81
[2020-10-04 14:45] VITALS: BP 103/81
[2020-10-04] MEDS ORDERED: RIVAROXABAN 20 MG TAB PO SCH (18:00)
== END 2020-10-04 17:50 | disposition home or self-care (01) | DRG 392 ==
LOC: ER 09:01 → TELE 09:02 → TELE-CENTR 14:55
PROVIDERS: ADMIT Family Medicine; ATTEND Family Medicine
PROC: B246ZZ4 Ultrasonography of Right and Left Heart, Transesophageal (ICD-10-PCS; principal; 2020-10-03)
DX: K21.9 Gastro-esophageal reflux disease without esophagitis (principal); N39.0 Urinary tract infection, site not specified; I42.9 Cardiomyopathy, unspecified; I50.22 Chronic systolic (congestive) heart failure; I13.0 Hypertensive heart and chronic kidney disease with heart failure and stage 1 through stage 4 chronic kidney disease, or unspecified chronic kidney disease; D63.8 Anemia in other chronic diseases classified elsewhere; E03.9 Hypothyroidism, unspecified; J44.9 Chronic obstructive pulmonary disease, unspecified; E78.00 Pure hypercholesterolemia, unspecified; E78.5 Hyperlipidemia, unspecified; I25.10 Atherosclerotic heart disease of native coronary artery without angina pectoris; Z82.3 Family history of stroke; Z82.49 Family history of ischemic heart disease and other diseases of the circulatory system; F41.9 Anxiety disorder, unspecified; R79.89 Other specified abnormal findings of blood chemistry; N18.2 Chronic kidney disease, stage 2 (mild); M19.90 Unspecified osteoarthritis, unspecified site; Z20.822 Contact with and (suspected) exposure to COVID-19
CPT/HCPCS: 36415; 71045; 78452; 80048; 80053; 81001; 83735; 83880; 84443; 84484; 85007; 85025; 85027; 85379; 85610; 85730; 87086; 87426; 93005; 93017; 93306; 93312; 93970; 94640; 99152; G0378; J0153; J0696; J2250; J2405